=== PATIENT | female | born 1930 | race Caucasian/White ===

== ENCOUNTER 2017-04-19 13:42 | Emergency (ER) | payer MEDICARE ==
[~2017-04-19] VITALS: Ht 157.5 cm; Wt 56.2 kg
[~2017-04-19 13:42] MED LIST: AMLO2.5T PO; ASCO500T45 PO; BEN12.5L PO; CALC-575 PO; CHOL100044; DYR50 PO; FEXO180T PO; GLUC1CAP57 PO; IBUP200S18 PO; LEVO500T6 PO; OMEP40EC1 PO; POTA10TE30 PO; POTA99CA2 PO; SIMV80TA1 PO; [UNRECOGNIZED DRUG - CODE] PO; [UNRECOGNIZED DRUG - CODE] PO
[2017-04-19 13:53] VITALS: BP 105/43
--- NOTE | 2017-04-19 13:59 | NUR ---
PT AMBULATED TO BED 12
[2017-04-19] MEDS ORDERED: NACL 0.9% 1,000 ML IV SCH (14:04)
[2017-04-19] MEDS ORDERED: ONDANSETRON 4 MG/2 ML VIAL IVP ONE (14:05)
--- NOTE | 2017-04-19 14:15 | NUR ---
86f bib daughter with c/o vomitting x 3 days; Pt sts approx vomitting 5 episodes per day. Pt states she was diagnosed with influeza this past weekend. Pt denies any pain at this time. Pt is aox4 with steady gait. RR are even and unlabored. Skin warm/pink/dry. No acute distress at this. VSS. Awaiting er md cruz. Will continue to monitor.
[2017-04-19 14:22] LABS: BASOPHILS # (AUTO) 0.2 K/uL (0.00-0.22); BASOPHILS % (AUTO) 2.5 % (0.0-2.0); EOSINOPHILS % (AUTO) 0.3 % (0.0-4.0); HEMATOCRIT 33.3 % (36-48); HEMOGLOBIN 10.9 g/dL (12.0-16.0); LYMPHOCYTES # (AUTO) 1.6 K/uL (2.5-16.5); LYMPHOCYTES % (AUTO) 20.2 % (20.5-51.1); MEAN CORPUSCULAR HEMOGLOBIN 27 pg (27-31); MEAN CORPUSCULAR HGB CONC 33 g/dL (33-37); MEAN CORPUSCULAR VOLUME 83 fL (80-94); MONOCYTES # (AUTO) 0.8 K/uL (0.8-1.0); MONOCYTES % (AUTO) 9.4 % (1.7-9.3); NEUTROPHILS # (AUTO) 5.5 K/uL (1.8-7.7); NEUTROPHILS % (AUTO) 67.6 % (42.2-75.2); PLATELET COUNT (AUTO) 169 K/uL (140-450); RED BLOOD CELL COUNT(AUTO) 4.04 MIL/uL (4.20-5.40); RED CELL DISTRIBUTION WIDTH 14.9 % (11.6-13.7); WHITE BLOOD COUNT (AUTO) 8.1 K/uL (4.8-10.8)
[2017-04-19 14:26] LABS: APPEARANCE,URINE HAZY (CLEAR); BILIRUBIN,URINE NEGATIVE (NEGATIVE); BLOOD, URINE TRACE-I (NEGATIVE); COLOR,URINE YELLOW (YELLOW); LEUKOCYTE ESTERASE ,URINE 3+ (NEGATIVE); NITRITE, URINE NEGATIVE (NEGATIVE); UGLUCOSE NEGATIVE (NEGATIVE)
[2017-04-19 14:30] LABS: ANION GAP 17.3 (8-16); CARBON DIOXIDE 24.1 mmol/L (21-32); CHLORIDE 101 mmol/L (98-107); CREATININE 1.8 mg/dL (0.6-1.3); GLUCOSE 112 mg/dL (74-106); POTASSIUM 3.4 mmol/L (3.5-5.1); SODIUM SERUM 139 mmol/L (136-145); UREA NITROGEN, BLOOD 23 mg/dL (7-18)
[2017-04-19 14:35] LABS: ALBUMIN 3.4 g/dL (3.4-5.0); ASPARTATE AMINOTRANSFERASE 34 U/L (15-37); LIPASE 213 U/L (73-393); TOTAL BILIRUBIN 0.4 mg/dL (0.0-1.0)
[2017-04-19 14:50] LABS: RBC,URINE 11-20 (MOD) /HPF (0-5); WBC,URINE TOO MANY TO COUNT /HPF (0-5)
[2017-04-19] MEDS ORDERED: POTASSIUM CHLORIDE 10 MEQ TABER PO ONE (15:15)
[2017-04-19 16:17] VITALS: BP 143/63
--- NOTE | 2017-04-19 16:17 | NUR ---
Patient discharged with v/s stable. Written and verbal after care instructions given and explained. Patient alert, oriented and verbalized understanding of instructions. Ambulatory with steady gait. All questions addressed prior to discharge. ID band removed. Patient advised to follow up with PMD. Rx of Prednisone, Cipro, and Zofran given. Patient educated on indication of medication including possible reaction and side effects. Opportunity to ask questions provided and answered.
== END 2017-04-19 16:17 | disposition home or self-care (01) ==
LOC: MED 13:42
DX: N39.0 Urinary tract infection, site not specified (principal); R11.2 Nausea with vomiting, unspecified; R05 Cough; E87.6 Hypokalemia; K21.9 Gastro-esophageal reflux disease without esophagitis; I10 Essential (primary) hypertension; Z79.899 Other long term (current) drug therapy; Z88.5 Allergy status to narcotic agent; Z88.8 Allergy status to other drugs, medicaments and biological substances; Z90.49 Acquired absence of other specified parts of digestive tract
CPT/HCPCS: 36415; 80053; 81001; 83690; 85025; 87086; 87186; 96361; 96374; 99284; J2405

== ENCOUNTER 2017-08-23 15:47 | Emergency (ER) | payer MEDICARE, OTHER ==
[~2017-08-23] VITALS: Ht 160 cm; Wt 52.6 kg
[2017-08-23 16:06] VITALS: BP 162/73
--- NOTE | 2017-08-23 16:30 | NUR ---
86 YO F BIB FAMILY WITH C/O HEAD ACHE WITH BLEEDING AT THE OCCIPITAL AREA, LT HIP PAIN S/P FALL ON A TILE FLOOR 30 MINUTES PRIOR TO ARIVAL, DIZZINESS X 1 WK; PRESCRIBED MECLIZINE, ZOFRAN LAST WK AT [place], BUT PT STILL REPORTS EPISODES OF DIZZINESS. PT DENIES LOC. NO APPARENT SIGNS OF TRAUMA. NO NOTED DEFORMITY. BUMP PALPABLE TO THE OCCIPITAL PORTION OF HEAD. PT AAOX4. GCS 15. CMS INTACT. RR EVEN AND UNLABORED. LUNGS BILATERALLY CLEAR. ABD SOFT, NON-TENDER. ER MD QUICK NOTIFIED. PT NEEDS MET. SAFETY PRECAUTIONS IN PLACE. WILL CONTINUE TO MONITOR.
--- NOTE | 2017-08-23 16:50 | NUR ---
PT TO CT SCAN AT THIS TIME VIA [facility].
--- NOTE | 2017-08-23 17:07 | NUR ---
PT BACK FROM CT
--- NOTE | 2017-08-23 18:00 | NUR ---
pt resting comfortably in [facility] at this time. vss. safety precautions in place. will continue to monitor.
--- NOTE | 2017-08-23 19:12 | NUR ---
Transfer of care at this time. Report given to PAUL Lopes.
--- NOTE | 2017-08-23 19:58 | NUR ---
Patient to be transferred to [facility]. Is being transferred due to CONTINUITY OF CARE. Receiving facility has accepting physician and available space. ER physician has signed transfer form. Patient or responsible republican has agreed to transfer and signed form. Patient belongings inventoried and will be sent with patient. Copy of nursing notes, lab reports, EKG, Physicians Orders and X-rays to be sent with patient. Report called to WEN MILLER at receiving facility. [facility] ambulance service has been called for transfer. ETA is 2044.
--- NOTE | 2017-08-23 20:10 | NUR ---
MERI EPRP, [facility] TRANSPORT ETA 2044
[2017-08-23 21:02] LABS: BASOPHILS % (AUTO) 0.3 % (0.0-2.0); EOSINOPHILS # (AUTO) 0.2 K/uL (0-0.4); HEMATOCRIT 35.4 % (36-48); HEMOGLOBIN 11.4 g/dL (12.0-16.0); LYMPHOCYTES # (AUTO) 2.2 K/uL (2.5-16.5); LYMPHOCYTES % (AUTO) 21.5 % (20.5-51.1); MEAN CORPUSCULAR HEMOGLOBIN 27 pg (27-31); MEAN CORPUSCULAR HGB CONC 32 g/dL (33-37); MEAN CORPUSCULAR VOLUME 82.6 fL (80-94); MONOCYTES # (AUTO) 0.8 K/uL (0.8-1.0); MONOCYTES % (AUTO) 7.4 % (1.7-9.3); NEUTROPHILS # (AUTO) 7.1 K/uL (1.8-7.7); NEUTROPHILS % (AUTO) 68.8 % (42.2-75.2); PLATELET COUNT (AUTO) 160 K/uL (140-450); RED BLOOD CELL COUNT(AUTO) 4.28 MIL/uL (4.20-5.40); RED CELL DISTRIBUTION WIDTH 16.3 % (11.6-13.7); WHITE BLOOD COUNT (AUTO) 10.4 K/uL (4.8-10.8)
--- NOTE | 2017-08-23 21:10 | NUR ---
Patient Tranfers to outside Facility Physician: DR SOLER Location: [facility] TRANSFERRED BY [facility]
[2017-08-23 21:13] VITALS: BP 148/62
[2017-08-23 21:29] LABS: ANION GAP 14.7 (8-16); CARBON DIOXIDE 28.8 mmol/L (21-32); CHLORIDE 101 mmol/L (98-107); CREATININE 1.5 mg/dL (0.6-1.3); GLUCOSE 108 mg/dL (74-106); POTASSIUM 3.5 mmol/L (3.5-5.1); SODIUM SERUM 141 mmol/L (136-145); UREA NITROGEN, BLOOD 27 mg/dL (7-18)
[2017-08-23 21:32] LABS: PROTHROMBIN TIME 11.1 secs (10.8-13.4)
[2017-08-23 21:35] LABS: ALBUMIN 3.6 g/dL (3.4-5.0); ASPARTATE AMINOTRANSFERASE 18 U/L (15-37); TOTAL BILIRUBIN 0.6 mg/dL (0.0-1.0)
== END 2017-08-23 21:08 | disposition short-term general hospital (02) ==
LOC: MED 15:47
DX: S01.01XA Laceration without foreign body of scalp, initial encounter (principal); S06.6X0A Traumatic subarachnoid hemorrhage without loss of consciousness, initial encounter; M25.552 Pain in left hip; I10 Essential (primary) hypertension; K21.9 Gastro-esophageal reflux disease without esophagitis; Z85.828 Personal history of other malignant neoplasm of skin; Z88.8 Allergy status to other drugs, medicaments and biological substances; W18.39XA Other fall on same level, initial encounter; Y93.89 Activity, other specified; Y99.8 Other external cause status; Y92.89 Other specified places as the place of occurrence of the external cause
CPT/HCPCS: 12001; 36415; 70450; 71045; 72192; 80053; 84484; 85025; 85610; 85730; 93005; 99285

== ENCOUNTER 2017-09-26 18:36 | Emergency (ER) | payer MEDICARE, OTHER ==
[~2017-09-26] VITALS: Ht 165.1 cm; Wt 56.7 kg
[~2017-09-26 18:36] MED LIST changes: +IBUP200C97 PO; -IBUP200S18 PO
[2017-09-26 18:40] VITALS: BP 174/123
[2017-09-26] MEDS ORDERED: LORazepam 2 MG/ML VIAL ONE (19:12)
[2017-09-26] MEDS ORDERED: LORazepam 2 MG/ML VIAL IVP ONE (19:15)
[2017-09-26] MEDS ORDERED: NACL 0.9% 1,000 ML IV SCH (19:49)
[2017-09-26] MEDS ORDERED: ONDANSETRON 4 MG/2 ML VIAL IVP ONE (19:50)
[2017-09-26] MEDS ORDERED: cefTRIAXone 1,000 MG in DEXT 5% MINI-BAG PLUS 50 ML IV ONE (19:50)
[2017-09-26] MEDS ORDERED: MORPHINE SULFATE 4 MG/ML SYR IVP ONE (19:50)
[2017-09-26] MEDS ORDERED: cefTRIAXone 1,000 MG VIAL ONE (20:19)
[2017-09-26 20:22] LABS: BASOPHILS # (AUTO) 0.1 K/uL (0.00-0.22); BASOPHILS % (AUTO) 0.7 % (0.0-2.0); EOSINOPHILS # (AUTO) 0.3 K/uL (0-0.4); EOSINOPHILS % (AUTO) 3.7 % (0.0-4.0); HEMATOCRIT 37.7 % (36-48); HEMOGLOBIN 12.4 g/dL (12.0-16.0); LYMPHOCYTES % (AUTO) 23.3 % (20.5-51.1); MEAN CORPUSCULAR HEMOGLOBIN 27 pg (27-31); MEAN CORPUSCULAR HGB CONC 33 g/dL (33-37); MEAN CORPUSCULAR VOLUME 83.2 fL (80-94); MONOCYTES # (AUTO) 0.7 K/uL (0.8-1.0); MONOCYTES % (AUTO) 7.8 % (1.7-9.3); NEUTROPHILS # (AUTO) 5.6 K/uL (1.8-7.7); NEUTROPHILS % (AUTO) 64.5 % (42.2-75.2); PLATELET COUNT (AUTO) 216 K/uL (140-450); RED BLOOD CELL COUNT(AUTO) 4.53 MIL/uL (4.20-5.40); RED CELL DISTRIBUTION WIDTH 17.6 % (11.6-13.7); WHITE BLOOD COUNT (AUTO) 8.7 K/uL (4.8-10.8)
[2017-09-26 20:27] LABS: APPEARANCE,URINE CLEAR (CLEAR); BILIRUBIN,URINE NEGATIVE (NEGATIVE); BLOOD, URINE NEGATIVE (NEGATIVE); LEUKOCYTE ESTERASE ,URINE TRACE (NEGATIVE); NITRITE, URINE NEGATIVE (NEGATIVE); UGLUCOSE NEGATIVE (NEGATIVE)
[2017-09-26 20:42] LABS: PROTHROMBIN TIME 11.7 secs (10.8-13.4)
[2017-09-26] MEDS ORDERED: ENALAPRILAT 2.5 MG/2 ML VIAL IVP ONE (21:15)
[2017-09-26 21:17] LABS: COLOR,URINE STRAW (YELLOW)
[2017-09-26 21:18] LABS: ALBUMIN 4.3 g/dL (3.4-5.0); ASPARTATE AMINOTRANSFERASE 22 U/L (15-37); CARBON DIOXIDE 20.2 mmol/L (21-32); CHLORIDE 104 mmol/L (98-107); GLUCOSE 106 mg/dL (74-106); POTASSIUM 3.2 mmol/L (3.5-5.1); SODIUM SERUM 142 mmol/L (136-145); TOTAL BILIRUBIN 0.6 mg/dL (0.0-1.0); UREA NITROGEN, BLOOD 27 mg/dL (7-18)
[2017-09-26 21:19] LABS: RBC,URINE NONE SEEN /HPF (0-5); WBC,URINE 0-5 (RARE) /HPF (0-5)
[2017-09-26 21:29] LABS: CREATININE 1.3 mg/dL (0.6-1.3)
[2017-09-26 23:48] VITALS: BP 154/79
== END 2017-09-27 00:13 | disposition short-term general hospital (02) ==
LOC: MED 18:36
DX: N39.0 Urinary tract infection, site not specified (principal); R40.4 Transient alteration of awareness; K21.9 Gastro-esophageal reflux disease without esophagitis; I10 Essential (primary) hypertension; M19.90 Unspecified osteoarthritis, unspecified site; Z90.710 Acquired absence of both cervix and uterus; Z79.899 Other long term (current) drug therapy; Z88.6 Allergy status to analgesic agent; Z88.8 Allergy status to other drugs, medicaments and biological substances
CPT/HCPCS: 36415; 70450; 71045; 80053; 81001; 82550; 82948; 83605; 83880; 84484; 85025; 85610; 85730; 86886; 86900; 86901; 87040; 87086; 93005; 96365; 96375; 99285; J0696; J2060; J2270; J2405; J3490

== ENCOUNTER 2018-12-19 10:25 | Emergency (ER) | payer MEDICARE, OTHER ==
[~2018-12-19] VITALS: Ht 157.5 cm; Wt 50.8 kg
[~2018-12-19 10:25] MED LIST changes: -OMEP40EC1 PO; +OMEP40EC24 PO
[2018-12-19 10:28] VITALS: BP 154/87
--- NOTE | 2018-12-19 10:30 | NUR ---
PT BIB PARENT WITH TIREDNESS, CHILLS, COUGH SINCE SUNDAY. HAS COLD LIKE SYMPTOMS. PER FAMILY, PT BEING TREATED FOR WATER IN LUNGS AT [place]. PT VOMITING, ONCE TODAY. lung sounds crackles lower lobe bilaterally. o2 2l nc. productive dry cough. vss. a & o x4. HX--HTN, HDL. MEDS---SEE RX LIST
--- NOTE | 2018-12-19 10:39 | NUR ---
PT SENT TO LOBBY , WAITING FOR THE BED. STABLE AT THIS TIME.
--- NOTE | 2018-12-19 11:05 | NUR ---
PT TAKEN TO BED 5 VIA WHEELCHAIR
[2018-12-19] MEDS ORDERED: ONDANSETRON 4 MG/2 ML VIAL IVP ONE (11:25)
--- NOTE | 2018-12-19 11:30 | NUR ---
radiology at bedside.
[2018-12-19] MEDS ORDERED: LIP80 PO (11:45)
[2018-12-19] MEDS ORDERED: DULO60EC PO (11:45)
[2018-12-19] MEDS ORDERED: FURO-572 PO (11:45)
[2018-12-19] MEDS ORDERED: METO25TA PO (11:45)
[2018-12-19 12:24] LABS: BASOPHILS % (AUTO) 0.2 % (0.0-2.0); EOSINOPHILS % (AUTO) 0.2 % (0.0-4.0); HEMATOCRIT 36.7 % (36-48); HEMOGLOBIN 11.9 g/dL (12.0-16.0); LYMPHOCYTES # (AUTO) 0.7 K/uL (2.5-16.5); MEAN CORPUSCULAR HEMOGLOBIN 28 pg (27-31); MEAN CORPUSCULAR HGB CONC 32 g/dL (33-37); MEAN CORPUSCULAR VOLUME 85.3 fL (80-94); MONOCYTES # (AUTO) 0.6 K/uL (0.8-1.0); MONOCYTES % (AUTO) 5.2 % (1.7-9.3); NEUTROPHILS # (AUTO) 9.9 K/uL (1.8-7.7); NEUTROPHILS % (AUTO) 88.4 % (42.2-75.2); PLATELET COUNT (AUTO) 178 K/uL (140-450); WHITE BLOOD COUNT (AUTO) 11.2 K/uL (4.8-10.8)
[2018-12-19 12:33] LABS: ANION GAP 14.3 (8-16); CARBON DIOXIDE 24.9 mmol/L (21-32); CHLORIDE 102 mmol/L (98-107); CREATININE 1.3 mg/dL (0.6-1.3); GLUCOSE 120 mg/dL (74-106); POTASSIUM 4.2 mmol/L (3.5-5.1); SODIUM SERUM 137 mmol/L (136-145); UREA NITROGEN, BLOOD 28 mg/dL (7-18)
[2018-12-19 12:38] LABS: ALBUMIN 3.6 g/dL (3.4-5.0); ASPARTATE AMINOTRANSFERASE 156 U/L (15-37); TOTAL BILIRUBIN 0.9 mg/dL (0.0-1.0)
[2018-12-19 13:18] LABS: APPEARANCE,URINE HAZY (CLEAR); BILIRUBIN,URINE NEGATIVE (NEGATIVE); BLOOD, URINE TRACE-L (NEGATIVE); COLOR,URINE YELLOW (YELLOW); LEUKOCYTE ESTERASE ,URINE 3+ (NEGATIVE); NITRITE, URINE POSITIVE (NEGATIVE); UGLUCOSE NEGATIVE (NEGATIVE)
[2018-12-19] MEDS ORDERED: NITROGLYCERIN 2% 1 GM PKT TP ONE (13:20)
[2018-12-19] MEDS ORDERED: FUROSEMIDE 40 MG/4 ML VIAL IVP SCH (13:20)
[2018-12-19 13:35] LABS: RBC,URINE 0-5 /HPF (0-5); WBC,URINE 60-80 /HPF (0-5)
[2018-12-19] MEDS ORDERED: cefTRIAXone 1,000 MG VIAL ONE (14:08)
--- NOTE | 2018-12-19 14:30 | NUR ---
cardiac diet order placed, cafeteria made aware
--- NOTE | 2018-12-19 15:59 | NUR ---
PT RESTING IN BED, DAUGHTER AT BEDSIDE, PT IS AWARE WE ARE WAITING ON [facility] TRANSFER
--- NOTE | 2018-12-19 16:26 | NUR ---
NITROGLYCERINE REMOVED DUE TO BP 96/59
--- NOTE | 2018-12-19 16:37 | NUR ---
REPORT GIVEN TO PAUL BOUCHER FROM [facility].
--- NOTE | 2018-12-19 17:32 | NUR ---
PT ASLEEP IN BED, NO NEW NEEDS AT THIS TIME
--- NOTE | 2018-12-19 18:15 | NUR ---
Patient to be transferred to [facility]. Is being transferred due to INSURANCE. Receiving facility has accepting physician and available space. ER physician has signed transfer form. Patient or responsible alliance party has agreed to transfer and signed form. Patient belongings inventoried and will be sent with patient. Copy of nursing notes, lab reports, EKG, Physicians Orders and X-rays to be sent with patient. Report called to NANCY PADILLA RN at receiving facility. [facility] ambulance service has ARRIVED for transfer.
[2018-12-19 18:19] VITALS: BP 108/62
--- NOTE | 2018-12-19 18:28 | NUR ---
CALL REPORT TO NANCY PADILLA RN FOR TRANSFER OF CARE TO [facility].
== END 2018-12-19 18:28 | disposition short-term general hospital (02) ==
LOC: MED 10:25
DX: I11.0 Hypertensive heart disease with heart failure (principal); I50.9 Heart failure, unspecified; N39.0 Urinary tract infection, site not specified; D64.9 Anemia, unspecified; R74.0 Nonspecific elevation of levels of transaminase and lactic acid dehydrogenase [LDH]; E78.5 Hyperlipidemia, unspecified; R00.0 Tachycardia, unspecified; K21.9 Gastro-esophageal reflux disease without esophagitis; Z87.448 Personal history of other diseases of urinary system; Z79.899 Other long term (current) drug therapy; Z88.6 Allergy status to analgesic agent; Z88.8 Allergy status to other drugs, medicaments and biological substances
CPT/HCPCS: 36415; 36600; 71045; 80053; 81001; 82803; 83605; 83880; 84484; 85025; 87040; 87086; 87186; 93005; 96365; 96375; 99285; J0696; J1940; J2405; Q0092

== ENCOUNTER 2020-03-27 13:43 | Emergency (ER) | payer MEDICARE, OTHER ==
[~2020-03-27] VITALS: Ht 160 cm; Wt 53.5 kg
[~2020-03-27 13:43] MED LIST changes: -AMLO2.5T PO; -ASCO500T45 PO; +ASCO500T95 PO; -BEN12.5L PO; +DULO60EC PO; -DYR50 PO; -FEXO180T PO; +FURO-572 PO; -IBUP200C97 PO; -LEVO500T6 PO; +LIP80 PO; +METO25TA PO; -SIMV80TA1 PO
[2020-03-27 13:45] VITALS: BP 118/87
--- NOTE | 2020-03-27 14:00 | NUR ---
EPIFANIO CLAY: CONTACT FOR UPDATES [phone]
[2020-03-27] MEDS ORDERED: AMLO10TA PO (14:14)
[2020-03-27] MEDS ORDERED: [UNRECOGNIZED DRUG - CODE] PO (14:14)
[2020-03-27] MEDS ORDERED: TRAZ-343 PO (14:14)
[2020-03-27] MEDS ORDERED: TRA200 PO (14:14)
[2020-03-27] MEDS ORDERED: OSC500 PO (14:14)
[2020-03-27] MEDS ORDERED: MULT1TAB99 PO (14:14)
[2020-03-27] MEDS ORDERED: METO25TA PO (14:14)
[2020-03-27] MEDS ORDERED: SPIR50TA PO (14:14)
[2020-03-27] MEDS ORDERED: BISO5TAB23 PO (14:14)
[2020-03-27] MEDS ORDERED: [UNRECOGNIZED DRUG - CODE] PO (14:14)
[2020-03-27] MEDS ORDERED: PANT40EC PO (14:14)
[2020-03-27] MEDS ORDERED: [UNRECOGNIZED DRUG - CODE] PO (14:14)
[2020-03-27] MEDS ORDERED: GABA100C PO (14:14)
[2020-03-27] MEDS ORDERED: FERR-212 PO (14:14)
--- NOTE | 2020-03-27 14:23 | NUR ---
89 Y/O FEMALE C/O CHEST PAIN 5/10 THAT RADIATES FROM CHEST TO BACK AND ABD PAIN. DENIES ANY CONTACT WITH ANYONE WHO TESTED FOR POSTIVE. PT RECEIVED THE VACCINE 2 WEEKS AGO. ALSO C/O N&V AND HEADACHE THAT STARTED 03/25/20. AMBULATES WITH WALKER. DOES NOT RECALL ANY MEDICATIONS SHE TAKES AT HOME. A&O X4. LUNGS BILATERALLY RHONCHI WITH A NON PRODUCTIVE COUGH.
[2020-03-27] MEDS: ONDANSETRON 4 MG/2 ML VIAL IVP ONE (14:54)
[2020-03-27] MEDS: NACL 0.9% 1,000 ML IV SCH (14:54)
[2020-03-27 14:55] LABS: BASOPHILS % (AUTO) 0.4 % (0.0-2.0); EOSINOPHILS % (AUTO) 0.2 % (0.0-4.0); HEMATOCRIT 35.1 % (36-48); HEMOGLOBIN 11.9 g/dL (12.0-16.0); LYMPHOCYTES # (AUTO) 0.6 K/uL (2.5-16.5); LYMPHOCYTES % (AUTO) 5.1 % (20.5-51.1); MEAN CORPUSCULAR HEMOGLOBIN 30 pg (27-31); MEAN CORPUSCULAR HGB CONC 34 g/dL (33-37); MEAN CORPUSCULAR VOLUME 87.7 fL (80-94); MONOCYTES # (AUTO) 0.6 K/uL (0.8-1.0); MONOCYTES % (AUTO) 4.9 % (1.7-9.3); NEUTROPHILS # (AUTO) 10.9 K/uL (1.8-7.7); NEUTROPHILS % (AUTO) 89.4 % (42.2-75.2); PLATELET COUNT (AUTO) 155 K/uL (140-450); WHITE BLOOD COUNT (AUTO) 12.2 K/uL (4.8-10.8)
--- NOTE | 2020-03-27 15:08 | NUR ---
nanotechnology engineering technician at bedside.
[2020-03-27 15:21] LABS: ALBUMIN 3.6 g/dL (3.4-5.0); ANION GAP 13.1 (8-16); ASPARTATE AMINOTRANSFERASE 167 U/L (15-37); CARBON DIOXIDE 25.9 mmol/L (21-32); CHLORIDE 99 mmol/L (98-107); CREATININE 1.7 mg/dL (0.6-1.3); GLUCOSE 116 mg/dL (74-106); LIPASE 99 U/L (73-393); SODIUM SERUM 134 mmol/L (136-145); TOTAL BILIRUBIN 2.9 mg/dL (0.0-1.0); UREA NITROGEN, BLOOD 39 mg/dL (7-18)
[2020-03-27 17:56] LABS: APPEARANCE,URINE HAZY (CLEAR); BILIRUBIN,URINE NEGATIVE (NEGATIVE); BLOOD, URINE TRACE-I (NEGATIVE); COLOR,URINE DARK YELLOW (YELLOW); LEUKOCYTE ESTERASE ,URINE 2+ (NEGATIVE); NITRITE, URINE NEGATIVE (NEGATIVE); PH,URINE 7.5 (5.0-9.0); UGLUCOSE NEGATIVE (NEGATIVE)
[2020-03-27] MEDS ORDERED: cefTRIAXone 1,000 MG VIAL ONE (17:58)
[2020-03-27 18:08] LABS: WBC,URINE 20-60 /HPF (0-5)
[2020-03-27] MEDS ORDERED: NACL 0.9% 1,000 ML IV SCH (18:10)
[2020-03-27] MEDS ORDERED: MORPHINE SULFATE 4 MG/ML SYR ONE (18:29)
[2020-03-27] MEDS: MORPHINE SULFATE 4 MG/ML SYR IVP ONE (18:35)
[2020-03-27] MEDS: metroNIDAZOLE 500 MG/NS PREMIX 100 ML IV ONE (18:57)
--- NOTE | 2020-03-27 19:10 | NUR ---
REPORT RECEIVED FROM PAUL MORENO. CARE ASSUMED.
--- NOTE | 2020-03-27 19:15 | NUR ---
RESTING IN BED WITH EYES OPEN. RESPIRATIONS REGULAR AND UNLABORED. SPEAKING WITH SON ON THE PHONE. DENIES PAIN AT THIS TIME. IVAB CONTINUES. ASSISTED WITH REPOSITIONING FOR COMFORT.
--- NOTE | 2020-03-27 20:07 | NUR ---
PT TO BE TRANSFERED TO [facility]. DR. BECKETT IS ACCEPTING. PT IS AWARE.
--- NOTE | 2020-03-27 20:10 | NUR ---
REPORT CALLED TO PAUL SY @ [facility]. [facility] HERE FOR TRANSPORT.
[2020-03-27 20:15] VITALS: BP 124/68
--- NOTE | 2020-03-29 19:39 | NUR ---
LATE ENTRY- FLAGYL IVPB DISCONTINUED AT 1954
== END 2020-03-27 20:25 | disposition designated cancer center or children's hospital (05) ==
LOC: MED 13:43
DX: K80.20 Calculus of gallbladder without cholecystitis without obstruction (principal); K81.9 Cholecystitis, unspecified; N39.0 Urinary tract infection, site not specified; J44.9 Chronic obstructive pulmonary disease, unspecified; K21.9 Gastro-esophageal reflux disease without esophagitis; Z87.448 Personal history of other diseases of urinary system; Z85.828 Personal history of other malignant neoplasm of skin; Z98.890 Other specified postprocedural states; Z79.899 Other long term (current) drug therapy; Z20.828 Contact with and (suspected) exposure to other viral communicable diseases
CPT/HCPCS: 36415; 71045; 76705; 80053; 81001; 83690; 84484; 85025; 87086; 87426; 93005; 96361; 96365; 96367; 96375; 99285; J0696; J2270; J2405; J3490; J7060; J7030

== ENCOUNTER 2021-08-21 13:42 | Inpatient (IN) | payer MEDICARE, OTHER ==
[~2021-08-21] VITALS: Ht 157.5 cm; Wt 54.0 kg
[~2021-08-21 13:42] MED LIST changes: +AMLO10TA PO; +BISO5TAB23 PO; -CALC-575 PO; -CHOL100044; -DULO60EC PO; +DULO60EC1 PO; +FERR-212 PO; +GABA100C PO; -GLUC1CAP57 PO; +MULT1TAB99 PO; -OMEP40EC24 PO; +OSC500 PO; +PANT40EC PO; -POTA10TE30 PO; -POTA99CA2 PO; +SPIR50TA PO; +TRA200 PO; +TRAZ-343 PO; +[UNRECOGNIZED DRUG - CODE] PO; +[UNRECOGNIZED DRUG - CODE] PO; +[UNRECOGNIZED DRUG - CODE] PO; -[UNRECOGNIZED DRUG - CODE] PO
[2021-08-21 13:53] VITALS: BP 194/88
--- NOTE | 2021-08-21 13:59 | NUR ---
PT W/C ASSISTED TO BED 11.
[2021-08-21] MEDS ORDERED: cefTRIAXone 1,000 MG in DEXT 5% MINI-BAG PLUS 50 ML IV ONE (14:00)
[2021-08-21] MEDS ORDERED: NACL 0.9% 1,000 ML IV SCH (14:00)
--- NOTE | 2021-08-21 14:00 | NUR ---
89 y/o female, c/o sob, weakness, dizzy, n/v, cough, that worsened today. pt states she took covid test 2 days ago and tested positive for covid. pt is also c/o nausea, vomiting. skin is pink/warm/dry. a&o x4, sami speaking, ambulates with heavy assist. lungs wheezing bl, heart rate even and regular. pt states pain is 9/10 at this time. patient positioned for comfort. hob elevated. bed down. ermd made aware of pt. pmh: htn, hld allergy: nsaids
--- NOTE | 2021-08-21 14:10 | NUR ---
labs drawn from iv site 22g hand. dawn and influenza collected and given to phleb.
[2021-08-21] MEDS ORDERED: cefTRIAXone 1,000 MG VIAL ONE (14:24)
[2021-08-21 14:26] LABS: BASOPHILS # (AUTO) 0.1 K/uL (0.00-0.22); BASOPHILS % (AUTO) 0.5 % (0.0-2.0); EOSINOPHILS # (AUTO) 0.2 K/uL (0-0.4); EOSINOPHILS % (AUTO) 1.8 % (0.0-4.0); HEMATOCRIT 37.2 % (36-48); HEMOGLOBIN 12.3 g/dL (12.0-16.0); LYMPHOCYTES # (AUTO) 3.2 K/uL (2.5-16.5); LYMPHOCYTES % (AUTO) 27.4 % (20.5-51.1); MEAN CORPUSCULAR HEMOGLOBIN 28 pg (27-31); MEAN CORPUSCULAR HGB CONC 33 g/dL (33-37); MEAN CORPUSCULAR VOLUME 85.4 fL (80-94); MONOCYTES # (AUTO) 0.6 K/uL (0.8-1.0); MONOCYTES % (AUTO) 5.5 % (1.7-9.3); NEUTROPHILS # (AUTO) 7.5 K/uL (1.8-7.7); NEUTROPHILS % (AUTO) 64.8 % (42.2-75.2); PLATELET COUNT (AUTO) 293 K/uL (140-450); RED BLOOD CELL COUNT(AUTO) 4.36 MIL/uL (4.20-5.40); WHITE BLOOD COUNT (AUTO) 11.6 K/uL (4.8-10.8)
[2021-08-21 14:49] LABS: ALBUMIN 3.8 g/dL (3.4-5.0); ANION GAP 15.8 (8-16); ASPARTATE AMINOTRANSFERASE 27 U/L (15-37); CARBON DIOXIDE 25.1 mmol/L (21-32); CHLORIDE 103 mmol/L (98-107); CREATININE 1.3 mg/dL (0.6-1.3); GLUCOSE 118 mg/dL (74-106); POTASSIUM 3.9 mmol/L (3.5-5.1); SODIUM SERUM 140 mmol/L (136-145); TOTAL BILIRUBIN 0.3 mg/dL (0.0-1.0); UREA NITROGEN, BLOOD 36 mg/dL (7-18)
--- NOTE | 2021-08-21 14:55 | NUR ---
Patient appears to be resting comfortably in bed. Vital Signs within normal limits. Respirations even and unlabored.
[2021-08-21] MEDS ORDERED: METOPROLOL 5 MG/5 ML VIAL IVP ONE (15:15)
[2021-08-21 15:39] LABS: APPEARANCE,URINE CLEAR (CLEAR); BILIRUBIN,URINE NEGATIVE (NEGATIVE); BLOOD, URINE TRACE-I (NEGATIVE); COLOR,URINE YELLOW (YELLOW); LEUKOCYTE ESTERASE ,URINE NEGATIVE (NEGATIVE); NITRITE, URINE NEGATIVE (NEGATIVE); PH,URINE 6.5 (5.0-9.0); UGLUCOSE NEGATIVE (NEGATIVE)
[2021-08-21 15:50] LABS: RBC,URINE 0-5 /HPF (0-5); WBC,URINE NONE SEEN /HPF (0-5)
--- NOTE | 2021-08-21 15:50 | NUR ---
pt assisted to bathroom at this time
--- NOTE | 2021-08-21 15:59 | NUR ---
called to give update to josué (daughter) [phone], no answer
--- NOTE | 2021-08-21 16:10 | NUR ---
pt daughter josué called for update, update given at this time
[2021-08-21] MEDS ORDERED: hydrALAZINE 20 MG/ML VIAL IVP ONE ×2 (16:15→17:40)
--- NOTE | 2021-08-21 16:40 | NUR ---
pt taken to ct via stacie at this time
--- NOTE | 2021-08-21 18:28 | NUR ---
Patient appears to be resting comfortably in bed. Vital Signs within normal limits. Respirations even and unlabored.
--- NOTE | 2021-08-21 19:01 | NUR ---
pt reports having numbness in right hand. vss at this time. lynnette sloan notified. pt reported to having equal pulses in bl upper and lower extremities. no facial droop and even strength in upper and lower extremities.
[2021-08-21] MEDS ORDERED: ONDANSETRON 4 MG/2 ML VIAL IVP ONE (19:10)
--- NOTE | 2021-08-21 19:51 | NUR ---
PT LAYING IN BED LOCKED IN LOWEST POSITION W X2 SIDERAILS UP FOR PT SAFETY. PT C/O OF OVERALL NOT FEELING WELL, PT REPORTS NAUSEA, AND HEADACHE /. PT BP 170/83 ERMD AWARE PER ERMD PT OK LONG BP IS UNDER 200 SYSTOLIC. PT ALSO C/O R ARM FEELS ASLEEP ERMD AWARE. PT AOX4, GCS, 15, NO FACIAL DROOP, EVEN STRENGTH IN UPPER AND LOWER EXTREMITIES. BREATHING EVEN AND UNLABORED. WILL CONTINUE TO MONITOR. PT DOES NOT KNOW HOME MEDS, PER PT WILL CONTACT SON AND SEE IF SHE CAN OBTAIN HOME MEDS.
[2021-08-21] MEDS ORDERED: MORPHINE SULFATE 4 MG/ML SYR IVP ONE (19:55)
[2021-08-21] MEDS ORDERED: ACETAMINOPHEN 325 MG TAB PO PRN (20:35)
[2021-08-21] MEDS ORDERED: HYDROcodone/APAP 5/325 MG 1 TAB TAB PO PRN (20:35)
[2021-08-21] MEDS ORDERED: MORPHINE SULFATE 2 MG/ML SYR IVP PRN (20:35)
--- NOTE | 2021-08-21 20:36 | NUR ---
Patient will be admitted to care of MD SADLER. Admited to TELE. Will go to room 113. Belongings list completed. Report to PAUL LANDEROS.
[2021-08-21] MEDS ORDERED: hydrALAZINE 20 MG/ML VIAL IVP PRN (20:40)
[2021-08-21] MEDS: FUROSEMIDE 40 MG/4 ML VIAL IVP SCH (22:28)
[2021-08-22] VITALS: BP 165/80
--- NOTE | 2021-08-22 01:11 | NUR ---
PATIENT TO ROOM 113-A PUT TO BED PATIENT ON ROOM AIR SAT 98%. LUNGS DIMINISH HAS PRODUCTIVE COUGH. PATIENT IS COVID + PATIENT HAS HAD ALL HER MEDS FOR VACCINE HER SON IS WHO MAKES DECISION ABOUT PATIENT. MARC WREN. PHONE # [phone]. PATIENT HAS HAD NO EMESIS OR VOMITING SINCE SHE CAME TO FLOOR.PATIENT HAS A LOT OF ALLERGY. NSAIDS,IBUPROFEN,ASA, LISINOPRIL, BENZONATATE. PATIENT SLEEPING NO DISTRESS NOTED.
[2021-08-22] MEDS: ONDANSETRON 4 MG/2 ML VIAL IVP PRN ×2 (03:59→14:04)
[2021-08-22 04:00] VITALS: BP 107/80
[2021-08-22 05:54] LABS: BASOPHILS % (AUTO) 0.3 % (0.0-2.0); EOSINOPHILS # (AUTO) 0.1 K/uL (0-0.4); EOSINOPHILS % (AUTO) 0.9 % (0.0-4.0); HEMATOCRIT 35.7 % (36-48); HEMOGLOBIN 11.8 g/dL (12.0-16.0); LYMPHOCYTES # (AUTO) 1.1 K/uL (2.5-16.5); LYMPHOCYTES % (AUTO) 13.1 % (20.5-51.1); MEAN CORPUSCULAR HEMOGLOBIN 29 pg (27-31); MEAN CORPUSCULAR HGB CONC 33 g/dL (33-37); MEAN CORPUSCULAR VOLUME 86.3 fL (80-94); MONOCYTES # (AUTO) 0.5 K/uL (0.8-1.0); MONOCYTES % (AUTO) 5.5 % (1.7-9.3); NEUTROPHILS # (AUTO) 6.7 K/uL (1.8-7.7); NEUTROPHILS % (AUTO) 80.2 % (42.2-75.2); PLATELET COUNT (AUTO) 250 K/uL (140-450); RED BLOOD CELL COUNT(AUTO) 4.13 MIL/uL (4.20-5.40); RED CELL DISTRIBUTION WIDTH 16.2 % (11.6-13.7); WHITE BLOOD COUNT (AUTO) 8.3 K/uL (4.8-10.8)
[2021-08-22 06:47] LABS: ANION GAP 12.8 (8-16); CARBON DIOXIDE 29.6 mmol/L (21-32); CHLORIDE 104 mmol/L (98-107); CREATININE 1.4 mg/dL (0.6-1.3); GLUCOSE 157 mg/dL (74-106); POTASSIUM 4.4 mmol/L (3.5-5.1); SODIUM SERUM 142 mmol/L (136-145); UREA NITROGEN, BLOOD 37 mg/dL (7-18)
[2021-08-22 06:51] LABS: MAGNESIUM 1.8 mg/dL (1.8-2.4); PHOSPHORUS 5.9 mg/dL (2.5-4.9)
--- NOTE | 2021-08-22 07:50 | NUR ---
RECEIVED REPORT FROM PM NURSE, PATIENT ASLEEP IN BED, NO OUTWARD S/SX OF PAIN OR DISCOMFORT OBSERVED AT THIS TIME, WILL ASSUME ALL CARE OF PATIENT
[2021-08-22 08:00] VITALS: BP 160/79
--- NOTE | 2021-08-22 09:11 | NUR ---
POTENTIAL COVID RELATED SKIN FAILURE DUE TO TISSUE LESS TOLERATE TO PRESSURE, SHEARING AND POSSIBLE ASSOCIATED WITH MICROVASCULAR INJURY AND HYPOXIA -POSITIONING: TURN AND REPOSITION PATIENT Q 2H OR SOONER USE PILLOWS TO KEEP BONY PROMINENCES FROM DIRECT CONTACT WITH SURFACES USE REPOSITIONING WEDGES TO PROVIDE 30-DEGREE ANGLE FOR SIDE LYING POSITIONS OFFLOADING OR FOAM DRESSING TO ALL TUBING TO PREVENT MEDICAL DEVICES RELATED PRESSURE INJURY -RE-EVALUATING AND MANAGING INCONTINENCE MONITOR SKIN CONDITION DURING POSITION CHANGE DO NOT MASSAGE REDNESS, BONY PROMINENCES, DO NOT USE DONUT-TYPE DEVICES FREQUENT ДМИТРИЙ-CARE AND PROVIDE BARRIER CREAMS PRN IF SOILING MOISTURE CONTROL BY OFFER BED TY/URINAL /ABSORBENT PAD TO WICK AND HOLD MOISTURE. KEEP SKIN DRY AND PROTECT FROM FRICTION -MANAGE FRICTION/SHEAR/MOBILITY KEEP HOB AT THE LOWEST LEVEL OF ELEVATION NO MORE THAN 30 DEGREE UNLESS OTHERWISE CONTRAINDICATED USE LIFT SHEET OR TRANSFER DEVICE TO MOVE PATIENT AND PREVENT LATERAL SHEER. PROTECT HEELS, ELBOWS BONY PROMENANCES WITH SKIN BERRIES OR FOAM DRESSING IF EXPOSED TO FRICTION OFFLOAD BILATERAL HEELS BY PLACING PILLOWS UNDER CALVES AT ALL TIMES, UNLESS OTHERWISE CONTRAINDICATED -PRESSURE REDISTRIBUTION SURFACE THERAPY NATHANIEL ISOFLEX MATTRESS -NUTRITION: PLEASE FOLLOW RD RECOMMENDATIONS AND OFFER NUTRITION SUPPLEMENTS IF ORDERED. PLEASE CONTACT WOUND CARE NURSE FOR ANY QUESTION AND CHANGE OF WOUND CONDITION.
[2021-08-22] MEDS: FUROSEMIDE 40 MG/4 ML VIAL IVP SCH (09:23)
[2021-08-22] MEDS ORDERED: ALBUTEROL SULFATE/IPRATROPIU 3 ML SOL IH PRN (10:45)
--- NOTE | 2021-08-22 11:30 | NUR ---
PROVIDED SON WITH UPDATE ON PATIENTS CONDITION, ALL CONCERNS ADDRESSED
--- NOTE | 2021-08-22 11:58 | NUR ---
PATIENT HAS BEEN SCREENED AND CATEGORIZED MODERATE NUTRITION RISK. PATIENT WILL BE SEEN WITHIN 3-5 DAYS OF ADMISSION. IZ[address] MARRERO [address]
[2021-08-22 12:00] VITALS: BP 137/85
--- NOTE | 2021-08-22 12:11 | NUR ---
DC PLANNING: ORDER RECEIVED THAT PATIENT IS STABLE TO TRANSFER IN-NETWORK TO A [facility], ORDER AND CLINICAL PACKET FAXED TO [facility]. CM WILL FOLLOW. Addendum: 08/22/21 at 1542 by Marianna Landers DC PLANNING: NO RESPONSE YET FROM [facility] REGARDING TRANSFER IN-NETWORK. THE PATIENT PRESENTED TO THE ED WITH SOB,N/V. H/O SKIN CANCER, COPD, GERD, HTN, RENAL DISEASE. POSITIVE COVID RAPID, CR 1.3, BNP 1780. CXR SHOWS MIL BIBASAL ATELECTASIS, CT HEAD NEGATIVE. ADMITTED FOR MANAGEMENT OF COVID PNA, STARTED ON DECADRON, DUONEBS, LASIX AND IVF'S. THE PATIENT LIVES IN A HOUSE WITH HER BROTHER AND HAS [employer] CAREGIVERS 3 DAYS/WK FOR 8 HRS. DME OF O2, 4WW AND WC, NEEDS ASSISTANCE WITH ADL'S. NO HOME HEALTH BUT PER P.T. WOULD BENEFIT FROM BEING ON SERVICE. CM WILL FOLLOW. Addendum: 08/24/21 at 1052 by Marianna Landers CM DC PLANNING: SAMUEL SPOKE WITH [facility], REFAXED THE TRANSFER ORDER AND UPDATED CLINICALS. CM ASSIGNED AT [facility] IS [facility]AR[facility], INFORMATION WILL BE FORWARDED FOR HIS REVIEW. SAMUEL ALSO SPOKE WITH THE PATIENTS DAUGHTER DANNA BY PHONE, CONFIRMED THE PATIENTS LIVING SITUATION AND DME. PATIENT WILL NEED HOME HEALTH FOR WIRE DRAWING SETTER AND P.T., CM ENDORSED THAT THIS WILL BE ORDERED IF THE PATIENT DOES NOT TRANSFER. CM WILL UPDATE FAMILY AND PATIENT ON [facility] TRANSFER ONCE A DECISION IS REACHED AND COMMUNICATED. SAMUEL WILL FOLLOW. Addendum: 08/24/21 at 1337 by Marianna Landers CM DC PLANNING: SAMUEL SPOKE WITH [facility] AGAIN, THEY STATE THAT [facility] IS WORKING ON GETTING A BED AT [facility]. SAMUEL WILL FOLLOW. Addendum: 08/24/21 at 1608 by Marianna Landers CM DC PLANNING: CM RECEIVED A CALL FROM [facility], THEY STATE THEY ARE NOW WORKING ON A BED A [facility]. THEY WILL CALL [facility] WHEN THEY HAVE A ROOM AND PRE SCHOOL MANAGER TIME FOR TRANSPORT. CM ENDORSED THIS TO THE PATIENTS NURSE DENAE. SAMUEL ALSO SPOKE WITH THE PATIENTS DAUGHTER DANNA AND UPDATED HER ON [facility] ARRANGEMENTS. CM WILL FOLLOW.
[2021-08-22] MEDS: ALBUTEROL SULFATE/IPRATROPIU 3 ML SOL IH SCH ×2 (13:35→20:23)
--- NOTE | 2021-08-22 14:04 | NUR ---
PATIENT C/O NAUSEA, PRN ZOFRAN ADMINISTERED PER EMAR
[2021-08-22 16:00] VITALS: BP 150/84
[2021-08-22] MEDS: NIFEdipine 60 MG TABER PO SCH (18:10)
[2021-08-22 20:00] VITALS: BP 134/70
--- NOTE | 2021-08-22 20:00 | NUR ---
RECEIVE IN BED IS ALERT ON DROPLET ISOLATION IS ON ROOM AIR NO SOB OR PAIN AT THIS TIME
[2021-08-23] VITALS: BP 92/58
[2021-08-23 04:00] VITALS: BP 113/76
--- NOTE | 2021-08-23 07:30 | NUR ---
RECEIVED REPORT FROM BREAKFAST BAR ATTENDANT NURSE FOR CONTINUITY OF CARE, POC DISCUSSED. PT IS ASLEEP ON HER SIDE WITH CHEST RISING AND FALLING EVEN AND UNLABORED. PT IS ON TELE MONITOR SHOWING SR. ALL SAFETY MEASURES IN PLACE. CALL LIGHT WITHIN REACH. WILL CONTINUE TO MONITOR.
[2021-08-23 08:00] VITALS: BP 97/55
[2021-08-23] MEDS: ZINC SULF 220 MG CAP PO SCH (08:37)
[2021-08-23] MEDS: ASCORBIC ACID 500 MG TAB PO SCH (08:37)
[2021-08-23] MEDS: NIFEdipine 60 MG TABER PO SCH (08:38)
--- NOTE | 2021-08-23 09:30 | NUR ---
LOVE MEDICATION ADMINISTERED PER MD ORDER. BP MEDICATION HELD DUE TO SBP LESS THAN 120 PER PARAMETERS. PT SITTING UP EATING BREAKFAST. REPORTS ALL OTHER NEEDS ARE CURRENTLY BEING MET. ALL SAFETY MEASURES IN PLACE, CALL LIGHT WITHIN REACH. WILL CONTINUE TO MONITOR.
[2021-08-23] MEDS: ALBUTEROL SULFATE/IPRATROPIU 3 ML SOL IH SCH ×3 (10:18→20:01)
--- NOTE | 2021-08-23 10:57 | NUR ---
PHYSICAL THERAPY CO-SIGN The Physical Therapy Progress Notes documented by Machine Rug Cleaner have been reviewed. Reviewed/Co-Signed by: Faye Sharpe Documentation Done by: NIKKY SAWYER PTA Addendum: 08/23/21 at 1058 by Faye Sharpe PT Amended: Links added.
--- NOTE | 2021-08-23 11:41 | NUR ---
SPOKE TO DAUGHTER, DANNA, AND GAVE FULL UPDATE. DAUGHTER STATES SHE HAS NOT HEARD FROM ANY NURSES OR DRS IN REGARDS TO MOTHERS STATUS. ALL QUESTIONS WERE ANSWERED, ALL CONCERNS COVERED. DAUGHTER STATES SHE FEELS BETTER AFTER HEARING UPDATE AND CONCERNS HAVE SAJI DISCUSSED. DAUGHTER STILL WANTS HER PHONE NUMBER TO BE GIVEN TO MD, FOR UPDATE FROM THE DR WELL.
--- NOTE | 2021-08-23 11:51 | NUR ---
DAUGHTER, DANNA CALLED AGAIN. ANSWERED THE NEW QUESTIONS SHE HAD. UPDATED HER ON THE NEW PLAN PER DR BAEZ OF POSSIBLE DC TOMORROW IF SHE REMAINS STABLE.
[2021-08-23 12:00] VITALS: BP 116/76
[2021-08-23] MEDS: ONDANSETRON 4 MG/2 ML VIAL IVP PRN ×2 (12:22→18:19)
--- NOTE | 2021-08-23 12:33 | NUR ---
PRN NAUSEA MEDICATION ADMINISTERED PER MD ORDER, PT STATES SHE IS WORRIED ABOUT HER BLOOD PRESSURE. EDUCATION PROVIDED ABOUT HOW MORNING BP MEDICATION WAS HELD, AND SUPERVISOR DRY PASTE READJUSTED MEDICATION. REASSESSED BP PER PTS REQUEST. 116/76. PT REPORTS SHE UNDERSTANDS AND ALL ANSWERS QUESTIONS.
--- NOTE | 2021-08-23 14:20 | NUR ---
CALLED ENGINEERING FOR ROOM BEING HOT, PT REPORTS HAVING PAIN FROM REFLUX. NOTIFIED MD FOR NEW ORDER
--- NOTE | 2021-08-23 14:26 | NUR ---
ICE PACKS GIVEN TO PT FOR ROOM TEMP
[2021-08-23] MEDS ORDERED: PANTOPRAZOLE 40 MG TABEC PO ONE (14:34)
[2021-08-23] MEDS: PANTOPRAZOLE 40 MG TABEC PO SCH (14:39)
--- NOTE | 2021-08-23 15:00 | NUR ---
DAILY ORDER OF PROTONIX ADMINISTERED PER MD ORDER, PT TOLERATED ADMINISTRATION. PT MOVED TO ROOM 114 DUE TO 113 AIR CONDITIONER NEEDING MAINTENANCE .
[2021-08-23 16:00] VITALS: BP 182/71
--- NOTE | 2021-08-23 16:35 | NUR ---
DAUGHTER DANNA CALLED STATING PT ON PHONE SOUNDS OUT OF BREATH. UPON ASSESSMENT, PT DOES NOT SHOW S/S OF SOB, O2 SAT AT 99%, ICE WATER AND COOL WASH CLOTHE PROVIDED. PT STATES SHE IS TIRED, EXPLAINED PT NEEDS REST TO FEEL BETTER.
--- NOTE | 2021-08-23 17:14 | NUR ---
SPOKE WITH DAUGHTER, GAVE ANOTHER UPDATED. NOTIFIED HER OF PAGE TO DR FROM BOTH RN AND CHARGE NURSE. HAS BEEN GIVEN FAMILY MEMBERS NUMBER AND AWARE OF FAMILY WANTING TO SPEAK WITH HIM.
[2021-08-23] MEDS: hydrALAZINE 20 MG/ML VIAL IVP PRN ×2 (17:17→18:18)
--- NOTE | 2021-08-23 17:30 | NUR ---
PRN HYDRALAZINE ADMINISTERED PER MD ORDER
--- NOTE | 2021-08-23 18:19 | NUR ---
REASSESS BP AFTER HYDRALAZINE; 99/61, HR 101. PRN ZOFRAN ADMINISTERED PER MD ORDER. ALL SAFETY MEASURES IN PLACE, CALL LIGHT WITHIN REACH. WILL CONTINUE TO MONITOR.
--- NOTE | 2021-08-23 18:55 | NUR ---
ALL NEEDS HAVE BEEN MET THROUGHOUT THE SHIFT, ALL SAFETY MEASURES IN PLACE, CALL LIGHT WITHIN REACH. WILL CONTINUE TO MONITOR
[2021-08-23 20:00] VITALS: BP 105/55
--- NOTE | 2021-08-23 20:00 | NUR ---
RECEIVED REPORT FROM MORNING SHIFT NURSE. PT IS SITTING ON BED. RESPIRATION ARE EVEN AND UNLABORED ON ROOM AIR. NO S/S OF DISTRESS NOTED. NO S/S OF PAIN NOTED. PT IS AOX4, ABLE TO VERBALIZE NEEDS AND ABLE TO FOLLOW COMMAND. PT HAS A REGULAR DIET AND HAS SALINE LOCK ON LEFT WRIST G18. ALL SAFETY MEASURES GIVEN. CALL LIGHT WITHIN REACH. BED WHEELS LOCKED. WILL CONTINUE TO MONITOR.
--- NOTE | 2021-08-23 21:01 | NUR ---
SCHEDULED MEDICATION WAS GIVEN PER MD ORDER. PT IS WELL TOLERATING IT. CALL LIGHT WITHIN REACH. ALL SAFETY MEASURES GIVEN. WILL CONTINUE TO MONITOR.
--- NOTE | 2021-08-23 22:38 | NUR ---
PT COMPLAINTS OF A LOT OF HEADACHE, TYLENOL ADMINISTERED ORDERED.
--- NOTE | 2021-08-23 22:38 | NUR ---
PT IS AWAKE AND VERBAL. VITAL SIGNS CHECKED: B/P-159/70, P-114, T-98.3, O2 SAT-97% RA. R-19.
[2021-08-24] VITALS: BP 156/58
[2021-08-24 04:00] VITALS: BP 105/57
--- NOTE | 2021-08-24 04:00 | NUR ---
PT STILL SLEEPING. CHEST RISE AND FALL SYMMETRICALLY NOTED. RESPIRATION WAS EVEN AND UNLABORED SATING AT 100%. CALL LIGHT WITHIN REACH. ALL SAFETY MEASURES IMPLEMENTED. WILL CONTINUE TO MONITOR.
[2021-08-24] MEDS: ALBUTEROL SULFATE/IPRATROPIU 3 ML SOL IH SCH ×2 (07:20→13:54)
--- NOTE | 2021-08-24 07:22 | NUR ---
PT IS STABLE. ENDORSED PT TO MORNING SHIFT NURSE FOR CONTINUITY OF CARE.
--- NOTE | 2021-08-24 07:23 | NUR ---
RECEIVED REPORT FROM CASTING REPAIRER NURSE FOR CONTINUITY OF CARE. PT IN BED SLEEPING AT THIS TIME. RESPIRATIONS ARE EVEN AND UNLABORED ON ROOM AIR. NO SIGNS OF DISTRESS NOTED. PT IS ALERT AND ORIENTED X4, ABLE TO VERBALIZE NEEDS, ABLE TO FOLLOW COMMANDS. PT HAS IV TO L WRIST, 18G, SALINE LOCKED. PT IS ON DROPLET PRECAUTIONS. SKIN IS WARM, DRY, AND INTACT. CALL LIGHT WITHIN REACH. ALL SAFETY MEASURES IN PLACE. WILL CONTINUE TO MONITOR.
[2021-08-24 08:00] VITALS: BP 190/78
--- NOTE | 2021-08-24 08:00 | NUR ---
Patient's Plan of Care was discussed and reviewed with MELECIO Mirza
--- NOTE | 2021-08-24 08:02 | NUR ---
PT DAUGHTER CALLED, ASKING FOR UPDATE. GAVE UPDATE. PT DAUGHTER ASKING WHAT TIME DR COMES TO CHECK ON PTS. INFORMED HER THAT DR COMES TO DO ROUNDS WHEN THEY ARE AVAILABLE, NURSE IS UNSURE TO WHAT TIME EXACTLY DR WILL COME. PT DAUGHTER VERBALIZED UNDERSTANDING. WILL CONTINUE TO MONITOR.
[2021-08-24] MEDS: ASCORBIC ACID 500 MG TAB PO SCH (08:55)
[2021-08-24] MEDS: ZINC SULF 220 MG CAP PO SCH (08:55)
[2021-08-24] MEDS: PANTOPRAZOLE 40 MG TABEC PO SCH (08:55)
--- NOTE | 2021-08-24 08:56 | NUR ---
ADMINISTERED ALL SCHEDULED MEDICATIONS. EDUCATED PT ON MEDS ADMINISTERED. PT VERBALIZED UNDERSTANDING. ALSO REMINDED PT THAT SPUTUM CULTURE IS REQUIRED. PT STATES SHE IS UNABLE TO PRODUCE SPUTUM AT THIS TIME. WILL ATTEMPT AGAIN AT A LATER TIME.
[2021-08-24] MEDS ORDERED: NIFEdipine 30 MG TABER PO SCH (09:00)
[2021-08-24] MEDS ORDERED: PANTOPRAZOLE 40 MG TABEC PO SCH (09:00)
--- NOTE | 2021-08-24 10:17 | NUR ---
PHYSICAL THERAPY CO-SIGN The Physical Therapy Progress Notes documented by Peanut Sheller have been reviewed. Reviewed/Co-Signed by: Faye Sharpe Documentation Done by: NIKKY SAWYER PTA Addendum: 08/24/21 at 1017 by Faye Sharpe PT Amended: Links added.
--- NOTE | 2021-08-24 10:35 | NUR ---
PT DAUGHTER CALLED, ASKING ABOUT PT BLOOD PRESSURE AND WHAT [facility] IS FOLLOWING. INFORMED HER THAT HOSPITAL IS FOLLOWING WHEEL GRINDER AND HOSPITALIST [facility]. DAUGHTER STATES SHE WISHES TO SPEAK WITH DR. INFORMED HER THAT WHEN DR COMES ONTO UNIT I WILL INFORM THE DR. DAUGHTER VERBALIZED UNDERSTANDING.
--- NOTE | 2021-08-24 11:03 | NUR ---
RECEIVED CALL FROM HIGH SCHOOL BAND TEACHER FROM [place]. REQUESTING UPDATE ON PT. UPDATE GIVEN. STATES HE WILL CALL HIGH SCHOOL BAND TEACHER HERE AT [facility] TO FOLLOW UP.
[2021-08-24 12:00] VITALS: BP 132/79
[2021-08-24 12:35] LABS: ANION GAP 13.3 (8-16); CARBON DIOXIDE 29.4 mmol/L (21-32); CHLORIDE 99 mmol/L (98-107); CREATININE 2.2 mg/dL (0.6-1.3); GLUCOSE 98 mg/dL (74-106); POTASSIUM 3.7 mmol/L (3.5-5.1); SODIUM SERUM 138 mmol/L (136-145); UREA NITROGEN, BLOOD 47 mg/dL (7-18)
[2021-08-24] MEDS ORDERED: NACL 0.9% 1,000 ML IV SCH (12:50)
--- NOTE | 2021-08-24 14:14 | NUR ---
PT DAUGHTER CALLED AGAIN, ASKING FOR ANOTHER UPDATE. GAVE UPDATE.
[2021-08-24 16:00] VITALS: BP 114/62
--- NOTE | 2021-08-24 16:20 | NUR ---
RECEIVED CALL FROM ARMATURE WINDER. PER ARMATURE WINDER, [facility] HAS AGREED TO TRANSFER PT TO [facility] IN [place]. THEY WILL CALL AND INFORM STAFF WHEN TRANSPORTATION IS SET.
--- NOTE | 2021-08-24 17:47 | NUR ---
PT IN BED RESTING AT THIS TIME. RESPIRATIONS ARE EVEN AND UNLABORED. NO SIGNS OF DISTRESS NOTED. WILL CONTINUE TO MONITOR.
--- NOTE | 2021-08-24 18:19 | NUR ---
RECEIVED CALL FROM KYLE RN SUPPLEMENTAL, GUILLERMO. PER GUILLERMO, PT HAS BEEN ACCEPTED AT [facility], WILL BE GOING TO ROOM 324. ACCEPTING NURSE WILL BE LUCY. NUMBER TO GIVE REPORT [phone]. GUILLERMO ALSO STATES THAT HE WILL FAX OVER PAPERWORK THAT KYLE WILL NEED FROM [facility].
--- NOTE | 2021-08-24 19:10 | NUR ---
ENDORSED PT TO RACK PRODUCTION WORKER NURSE FOR CONTINUITY OF CARE. PT IS STABLE. ALL DISCHARGE PAPERWORK DONE. REPORT GIVEN TO LUCY AT [facility]. TRANSPORTATION IS SET FOR 1930.
--- NOTE | 2021-08-24 19:11 | NUR ---
RECEIVED REPORT FROM MORNING NURSE, DENAE. PT IS LYING ON THE BED. PT IS AOX3. CALL LIGHT WITHIN REACH WILL CONTINUE TO MONITOR PT.
--- NOTE | 2021-08-24 19:50 | NUR ---
PT IS PICK-UP BY [facility] AT 1950, GOING TO [facility] TO ROOM 324. NURSE LUCY IS AWARE. PT IS STABLE.
[2021-08-24] MEDS ORDERED: METOPROLOL 25 MG TAB PO SCH (21:00)
== END 2021-08-24 19:50 | disposition short-term general hospital (02) | DRG 871 ==
LOC: MED 13:42 → MTU 20:10
PROVIDERS: ADMIT Student in an Organized Health Care Education/Training Program; ATTEND Student in an Organized Health Care Education/Training Program
DX: A41.9 Sepsis, unspecified organism (principal); I50.43 Acute on chronic combined systolic (congestive) and diastolic (congestive) heart failure; U07.1 COVID-19; N17.0 Acute kidney failure with tubular necrosis; J12.82 Pneumonia due to coronavirus disease 2019; J96.00 Acute respiratory failure, unspecified whether with hypoxia or hypercapnia; N39.0 Urinary tract infection, site not specified; J44.0 Chronic obstructive pulmonary disease with (acute) lower respiratory infection; I16.1 Hypertensive emergency; I13.0 Hypertensive heart and chronic kidney disease with heart failure and stage 1 through stage 4 chronic kidney disease, or unspecified chronic kidney disease; I25.10 Atherosclerotic heart disease of native coronary artery without angina pectoris; K21.9 Gastro-esophageal reflux disease without esophagitis; E83.39 Other disorders of phosphorus metabolism; C44.90 Unspecified malignant neoplasm of skin, unspecified; E78.5 Hyperlipidemia, unspecified; N18.9 Chronic kidney disease, unspecified; E86.0 Dehydration; Z88.6 Allergy status to analgesic agent; Z88.1 Allergy status to other antibiotic agents; Z88.5 Allergy status to narcotic agent; Z88.8 Allergy status to other drugs, medicaments and biological substances; Z79.899 Other long term (current) drug therapy; Z90.710 Acquired absence of both cervix and uterus; Z90.49 Acquired absence of other specified parts of digestive tract; Z85.828 Personal history of other malignant neoplasm of skin
CPT/HCPCS: 36415; 70450; 71045; 80048; 80053; 81001; 83605; 83615; 83735; 83880; 84100; 84484; 85025; 85379; 85651; 86140; 87040; 87081; 87086; 93005; 94640; 96365; 96375; 96376; 97112; 97116; 97163-GP; 97530; 99285; J0360; J0696; J1644; J1940; J2270; J2405; J3490; J7030; Q0092

== ENCOUNTER 2021-12-16 19:18 | Inpatient (IN) | payer MEDICARE, OTHER ==
[~2021-12-16] VITALS: Ht 157.5 cm; Wt 59.9 kg
[2021-12-16 19:25] VITALS: BP 180/75
--- NOTE | 2021-12-16 19:25 | NUR ---
SWAB FOR YAJAIRA, INFLUENZA SENT TO LAB
--- NOTE | 2021-12-16 19:28 | NUR ---
TO LOBBY A/W BED VIA W/C
--- NOTE | 2021-12-16 21:18 | NUR ---
pt w/c assisted to bed#9
--- NOTE | 2021-12-16 21:22 | NUR ---
Dr. Hernandez examining patient.
--- NOTE | 2021-12-16 21:29 | NUR ---
89 yo f bib self with c/c of dry cough xwedneday. +sob. +body aches +n/v. denies fever, diarrhea, chills and chest pain. hx:kd, htn, hyperlipidemia, ra allergy:asa
[2021-12-16 21:47] LABS: BASOPHILS # (AUTO) 0.1 K/uL (0.00-0.22); BASOPHILS % (AUTO) 0.8 % (0.0-2.0); EOSINOPHILS % (AUTO) 0.8 % (0.0-4.0); HEMATOCRIT 34.4 % (36-48); HEMOGLOBIN 11.4 g/dL (12.0-16.0); LYMPHOCYTES # (AUTO) 0.8 K/uL (2.5-16.5); LYMPHOCYTES % (AUTO) 12.6 % (20.5-51.1); MEAN CORPUSCULAR HEMOGLOBIN 28 pg (27-31); MEAN CORPUSCULAR HGB CONC 33 g/dL (33-37); MEAN CORPUSCULAR VOLUME 83.5 fL (80-94); MONOCYTES # (AUTO) 0.5 K/uL (0.8-1.0); MONOCYTES % (AUTO) 8.6 % (1.7-9.3); NEUTROPHILS # (AUTO) 4.8 K/uL (1.8-7.7); NEUTROPHILS % (AUTO) 77.2 % (42.2-75.2); PLATELET COUNT (AUTO) 176 K/uL (140-450); RED BLOOD CELL COUNT(AUTO) 4.11 MIL/uL (4.20-5.40); RED CELL DISTRIBUTION WIDTH 16.8 % (11.6-13.7); WHITE BLOOD COUNT (AUTO) 6.2 K/uL (4.8-10.8)
[2021-12-16 22:13] LABS: ALBUMIN 3.6 g/dL (3.4-5.0); ANION GAP 14.5 (8-16); ASPARTATE AMINOTRANSFERASE 23 U/L (15-37); CARBON DIOXIDE 26.5 mmol/L (21-32); CHLORIDE 103 mmol/L (98-107); CREATININE 1.5 mg/dL (0.6-1.3); GLUCOSE 115 mg/dL (74-106); SODIUM SERUM 140 mmol/L (136-145); TOTAL BILIRUBIN 0.6 mg/dL (0.0-1.0); UREA NITROGEN, BLOOD 32 mg/dL (7-18)
[2021-12-16] MEDS ORDERED: HEPARIN PER PHARMACY MC STA (22:34)
[2021-12-16] MEDS ORDERED: hePARIN / DEXT 5% PREMIX 250 ML IV ONE (22:35)
[2021-12-16 23:22] LABS: PROTHROMBIN TIME 12.2 secs (10.8-13.4)
[2021-12-17] VITALS (7 sets, daily range): BP systolic 106–215; BP diastolic 66–101
[2021-12-17] MEDS ORDERED: ACETAMINOPHEN EXTRA STRENGTH 500 MG TAB ONE (00:05)
[2021-12-17] MEDS ORDERED: ACETAMINOPHEN EXTRA STRENGTH 500 MG TAB PO ONE (00:05)
--- NOTE | 2021-12-17 00:53 | NUR ---
pt is awake and alert. all needs met at this time.
--- NOTE | 2021-12-17 02:09 | NUR ---
pt appears to be resting with equal rise and fall of chest wall. pt opens eyes to sound. pt on athletic monitor. all needs met at this time. bed locked in lowest position, side rails x2 for safety.
[2021-12-17] MEDS ORDERED: ONDANSETRON 4 MG/2 ML VIAL IM/IVP PRN (03:25)
[2021-12-17] MEDS ORDERED: MORPHINE SULFATE 2 MG/ML SYR IVP PRN (03:25)
[2021-12-17] MEDS ORDERED: POTASSIUM CHLORIDE 10 MEQ TABER PO PRN (03:25)
[2021-12-17] MEDS ORDERED: HYDROcodone/APAP 5/325 MG 1 TAB TAB PO PRN (03:25)
[2021-12-17] MEDS ORDERED: DOCUSATE SODIUM 100 MG GELCAP PO PRN (03:25)
[2021-12-17] MEDS ORDERED: MAGNESIUM OXIDE 400 MG TAB PO PRN (03:25)
[2021-12-17] MEDS ORDERED: SODIUM PHOS / POTASSIUM PHOS 1 PKT PDR PO PRN (03:25)
[2021-12-17 04:33] LABS: CHOL/HDL RATIO 2.7 (1-4.5); MAGNESIUM 1.7 mg/dL (1.8-2.4); PHOSPHORUS 4.5 mg/dL (2.5-4.9)
[2021-12-17] MEDS: NACL 0.9% 1,000 ML IV SCH (05:24)
--- NOTE | 2021-12-17 05:25 | NUR ---
20 g to left fa, unable to draw labs from this line. lab made aware.
--- NOTE | 2021-12-17 05:49 | NUR ---
lab at bedside
[2021-12-17 06:02] LABS: BASOPHILS % (AUTO) 0.7 % (0.0-2.0); EOSINOPHILS % (AUTO) 0.4 % (0.0-4.0); HEMATOCRIT 31.8 % (36-48); HEMOGLOBIN 10.5 g/dL (12.0-16.0); LYMPHOCYTES # (AUTO) 1.4 K/uL (2.5-16.5); LYMPHOCYTES % (AUTO) 24.1 % (20.5-51.1); MEAN CORPUSCULAR HEMOGLOBIN 28 pg (27-31); MEAN CORPUSCULAR HGB CONC 33 g/dL (33-37); MEAN CORPUSCULAR VOLUME 83.3 fL (80-94); MONOCYTES # (AUTO) 0.6 K/uL (0.8-1.0); MONOCYTES % (AUTO) 9.9 % (1.7-9.3); NEUTROPHILS # (AUTO) 3.8 K/uL (1.8-7.7); NEUTROPHILS % (AUTO) 64.9 % (42.2-75.2); PLATELET COUNT (AUTO) 162 K/uL (140-450); RED BLOOD CELL COUNT(AUTO) 3.82 MIL/uL (4.20-5.40); RED CELL DISTRIBUTION WIDTH 17.3 % (11.6-13.7); WHITE BLOOD COUNT (AUTO) 5.8 K/uL (4.8-10.8)
[2021-12-17 06:16] LABS: ANION GAP 14.6 (8-16); CARBON DIOXIDE 25.2 mmol/L (21-32); CHLORIDE 104 mmol/L (98-107); CREATININE 1.4 mg/dL (0.6-1.3); GLUCOSE 105 mg/dL (74-106); POTASSIUM 3.8 mmol/L (3.5-5.1); SODIUM SERUM 140 mmol/L (136-145); UREA NITROGEN, BLOOD 31 mg/dL (7-18)
[2021-12-17 06:22] LABS: PROTHROMBIN TIME 13.4 secs (10.8-13.4)
--- NOTE | 2021-12-17 07:30 | NUR ---
pt calm and resting. denies any complaints at this time.
--- NOTE | 2021-12-17 07:59 | NUR ---
Patient will be admitted to care of DR BROWN. Admited to TELE. Will go to [id number]. Belongings list completed. Report to BRYON MILLER.
--- NOTE | 2021-12-17 08:00 | NUR ---
RECEIVED PT FROM ER NURSE. PT A/O X4. ABLE TO MAKE NEEDS KNOWN. RR EVEN & UNLABORED. O2 SATURATION @ 99% ON 2L NC. HEPARIN DRIP @ 9.5 ML/HR INFUSING ON RAC #20. L AC #20 DRESSING C/D/I. MRSA OF NARES TAKEN AND SENT TO LAB. TELE, SR. INTERMITTENT COUGH NOTED. NEEDS ALL MET AT THIS TIME ALL SAFETY MEASURES IN PLACE.
--- NOTE | 2021-12-17 08:14 | NUR ---
CONTACTED REGARDING IF MD WANTS TO CONTINUE HEPARIN DRIP. ALSO CONTACTED DR. BROWN FOR PRN BLOOD PRESSURE MED. PT'S BP 190/96, HR 69. AWAITING RESPONSE.
--- NOTE | 2021-12-17 08:51 | NUR ---
CONTACTED DR. BROWN REGARDING PTT LEVEL. AWAITING RESPONSE.
[2021-12-17] MEDS ORDERED: HEPARIN PER PHARMACY MC PRN (09:00)
--- NOTE | 2021-12-17 09:00 | NUR ---
MD ORDER FOR HEPARIN PER PROTOCOL AND HYDRALAZINE 5MG IVP FOR SBP >160. ORDERS INPUTTED.
--- NOTE | 2021-12-17 09:36 | NUR ---
PATIENT HAS BEEN SCREENED AND CATEGORIZED MODERATE NUTRITION RISK. PATIENT WILL BE SEEN WITHIN 3-5 DAYS OF ADMISSION. 12/19/2209/26/[address]
[2021-12-17] MEDS: hydrALAZINE 20 MG/ML VIAL IVP PRN (09:44)
[2021-12-17] MEDS: ACETAMINOPHEN 325 MG TAB PO PRN (09:48)
[2021-12-17] MEDS ORDERED: hePARIN / DEXT 5% PREMIX 250 ML IV SCH (09:55)
--- NOTE | 2021-12-17 10:15 | NUR ---
CONTACTED MD REGARDING PHARMACY RECOMMENDATION. MD ORDER PER PHARMACY RECOMMENDATION. MD ORDER FOR NEW PTT LABS AND TO STOP HEPARIN. HEPARIN STOPPED AND FLUSHED WITH NS. PT DENIES COUGH AT THIS TIME. DENIES CHEST PAIN. HOB ELEVATED. ON 2L NC. RR EVEN & UNLABORED. NEEDS ALL MET AT THIS TIME. ALL SAFETY MEASURES IN PLACE.
--- NOTE | 2021-12-17 11:24 | NUR ---
SPOKE WITH PHARMACY AND PHARMACY STATES TO WAIT FOR PTT LEVEL AND THEN FOLLOW PHARMACY PROTOCOL FOR HEPARIN DRIP. AWAITING RESULTS.
--- NOTE | 2021-12-17 11:30 | NUR ---
PLAN OF CARE DISCUSSED WITH SIENA TRAN (SON) AND ASKED WHO THEY WANTED PRIMARY CONTACT FOR PT CARE UPDATES. SIENA STATES, "DANNA".
[2021-12-17] MEDS: guaiFENesin DM 200/20 MG-10 ML 10 ML UDC PO PRN (12:07)
--- NOTE | 2021-12-17 13:30 | NUR ---
CHARGE NURSE STATES LAB CALLED FOR PTT VALUE. CHECKED LAB RESULTS WITH NO PTT VALUE. AWAITING PTT VALUE. PHARMACY ALSO STATES LAB NEEDS TO INPUT VALUE BEFORE HEPARIN DRIP CALCULATIONS.
--- NOTE | 2021-12-17 13:45 | NUR ---
CONTACTED LAB FOR PTT RESULTS AND WAS TRANSFERRED TO CHEMISTRY AND THEY STATE TO CONTACT SALES REPRESENTATIVE [employer] FOR RESULTS. NO PICKUP FROM [facility]. WILL FOLLOW-UP.
--- NOTE | 2021-12-17 14:45 | NUR ---
PLAN OF CARE UPDATED WITH DANNA BALDERAS. EXPLAINED SHE WILL BE THE PRIMARY CONTACT FOR PT'S UPDATES. CONTACTED GRINDER SET UP OPERATOR JIG AGAIN FOR PTT RESULTS PENDING. STATES WILL FOLLOW-UP WITH LAB.
--- NOTE | 2021-12-17 15:24 | NUR ---
CONTACTED CHEMISTRY AND EXPLAINED WE NEEDED. PTT RESULTS. PTT RESULTS FINALLY INPUTTED. CONTACTED PHARMACY AND STATES HEPARIN DRIP @ 8.5 ML/HR. HEPARIN DRIP STARTED PER PHARMACY. Addendum: 12/17/21 at 1556 by Agency Nurse PAUL Garcia RN NOT STARTED.
--- NOTE | 2021-12-17 15:50 | NUR ---
SPOKE WITH LAB AND THEY STATE THEY NEVER RECEIVED THE ORDER. EXPLAINED THAT ORDER SAYS "COMPLETE" AND THAT A PTT LEVEL WAS DRAWN. LAB STATES THEY WILL REDRAW. AWAITING RESULTS. NO HEPARIN DRIP INFUSING AT THIS TIME.
--- NOTE | 2021-12-17 15:51 | NUR ---
HEPARIN DRIP INFUSING AT 9.5 ML/HR.
--- NOTE | 2021-12-17 16:40 | NUR ---
PT COMPLAINED OF SOB. RR LABORED, USE OF ACCESSORY MUSCLES, CONTACTED RT. BP 213/116, HR 114, O2 SATURATION @ 88%. CONTACTED MD FOR NEW ORDERS. SPOKE WITH WORKERS COMPENSATION CLAIMS SPECIALIST AND STATES PT STARTED GOING ST AROUND 1630. PT LOOKS PALE, DIAPHORETIC. AWAITING FOR MD ORDER.
--- NOTE | 2021-12-17 16:46 | NUR ---
10 MG HYDRALAZINE GIVEN IVP.
--- NOTE | 2021-12-17 16:48 | NUR ---
CODE RAPID CALLED. RT AT BEDSIDE. O2 SATURATION 2 88%. NONREBREATHER PLACED. O2 SATURATION @ 98%. CONTACTED . ORDER FOR STAT EKG. ORDER FOR HYDRALAZINE 10 MG IVP. HEPARIN DRIP INFUSING PER PHARMACY PROTOCOL.
[2021-12-17] MEDS ORDERED: LORazepam 2 MG/ML VIAL IVP PRN (16:50)
[2021-12-17] MEDS ORDERED: hydrALAZINE 20 MG/ML VIAL IVP ONE (16:50)
[2021-12-17] MEDS ORDERED: LORazepam 2 MG/ML VIAL ONE (16:56)
--- NOTE | 2021-12-17 17:00 | NUR ---
DR. PALMER AT BEDSIDE. VERBAL ORDER FOR CHEST XRAY AND TROPONIN SERIES. O2 SATURATION @ 96%.
--- NOTE | 2021-12-17 17:30 | NUR ---
DR. PALMER SPOKE WITH DR. BROWN AND ORDER FOR TRANSFER TO ICU. PT TRANSPORTED VIA BED. BEDSIDE REPORT GIVEN TO ICU NURSE, JEWLE.
--- NOTE | 2021-12-17 17:40 | NUR ---
PT TRANSFERRED TO ICU BED 7 FROM TELEMETRY. RT AT BEDSIDE PLACING BIPAP ON PT. HEPARIN DRIP INFUSING TO RAC. PT CURRENTLY HAS LABORED BREATHING TACHYPNIC, HYPERTENSIVE AND TACHYCARDIC.
[2021-12-17] MEDS: NITROGLYCERIN 50 MG/D5W PREMIX 250 ML IV PRN (18:02)
--- NOTE | 2021-12-17 18:02 | NUR ---
NITROGLYCERIN DRIP STARTED AT 5MCG/MIN PER PROTOCOL. INFUSING TO LAC.
[2021-12-17] MEDS ORDERED: NITROPRUSSIDE 50 MG in DEXTROSE 5% 250 ML IV PRN (19:05)
--- NOTE | 2021-12-17 19:33 | NUR ---
REPORT GIVEN TO DAVIDSON RN, ALL CARES ENDORSED.
--- NOTE | 2021-12-17 21:35 | NUR ---
1910: REC'D PT FROM PAUL HOLLOWAY TO ASSUME PLAN OF CARE. PT'S A/0X4, DENIES PAIN. ON BIAP AT 45% FI02 SATS >98%. DAUGHTER AT THE BEDSIDE. PT'S ON HEPARIN DRIP AT 9.5CC/HR AND NITRO DRIP AT 40CC/HR. SBP IN THE 160'S HR LOW 100'S. HAS PIVLINES ON BOTH AC'S. PT'S HARD STICK AND NEEDS PICCLINE, PT'S DAUGHTER AND PT AGREED PICCLINE. 2019: called DR. BROWN FOR ORDER. ORDER GIVEN FOR PICCLINE 2021: CONSENT SIGNED FOR PICCLINE. 2100: PT'S NOW ON HFNC SATS 97% SAFETY AND SKIN PROTOCOL ON PROGRESS. DENIES PAIN. INSTRUCTED TO CALL IN CASE ONSET OF PAIN OCCUR. CALL LIGHT IN REACH.
[2021-12-18] VITALS (21 sets, daily range): BP systolic 153–194; BP diastolic 66–116
[2021-12-18] MEDS: NACL 0.9% 1,000 ML IV SCH (02:27)
--- NOTE | 2021-12-18 03:00 | NUR ---
2330: PT PULLED IV OUT, CONFUSED AND HAVE TO CHANGED LINEN AND GOWN. REORIENTED TO ROOM/UNIT AND WHAT'S HAPPENING. 0200: PT HAD ANOTHER EPISODE OF CONFUSION. PT SAID SHE'S AT HOME AND WANTS TO WALK AND GO TO THE BATHROOM. GIVEN BEDPAN. HAS A SMALL BM SOFT AND BROWN IN COLOR. 0300: PT PULLED OUT IVLINE AND BLOOD ALL OVER THE BED TO THE FLOOR. CONFUSED AND DON'T KNOW WHERE SHE AT. REORIENTED TO ROOM/UNIT AND SURROUNDINGS. CHANGED ALL BED LINENS, GOWN AND BATH GIVEN AGAIN. SAFETY AND SKIN PROTOCOL ON PROGRESS. CONTINUE MONITOR.
[2021-12-18 03:41] LABS: APPEARANCE,URINE CLEAR (CLEAR); BILIRUBIN,URINE NEGATIVE (NEGATIVE); BLOOD, URINE NEGATIVE (NEGATIVE); COLOR,URINE YELLOW (YELLOW); LEUKOCYTE ESTERASE ,URINE TRACE (NEGATIVE); NITRITE, URINE NEGATIVE (NEGATIVE); UGLUCOSE NEGATIVE (NEGATIVE)
[2021-12-18] MEDS: hydrALAZINE 20 MG/ML VIAL IVP PRN ×2 (04:05→15:36)
[2021-12-18] MEDS: NITROGLYCERIN 50 MG/D5W PREMIX 250 ML IV PRN ×4 (04:07→23:19)
--- NOTE | 2021-12-18 04:25 | NUR ---
PER NURSE, PT WAS TAKEN OFF HFNC TO REGULAR NASAL CANNULA AT 6L SATING 100% CURRENTLY IN NO RESPIRATORY DISTRESS.
[2021-12-18 05:59] LABS: BASOPHILS % (AUTO) 0.5 % (0.0-2.0); HEMATOCRIT 30.2 % (36-48); HEMOGLOBIN 10.2 g/dL (12.0-16.0); LYMPHOCYTES # (AUTO) 1.3 K/uL (2.5-16.5); MEAN CORPUSCULAR HEMOGLOBIN 28 pg (27-31); MEAN CORPUSCULAR HGB CONC 34 g/dL (33-37); MEAN CORPUSCULAR VOLUME 83.2 fL (80-94); MONOCYTES # (AUTO) 0.6 K/uL (0.8-1.0); MONOCYTES % (AUTO) 8.9 % (1.7-9.3); NEUTROPHILS # (AUTO) 5.2 K/uL (1.8-7.7); NEUTROPHILS % (AUTO) 72.6 % (42.2-75.2); PLATELET COUNT (AUTO) 160 K/uL (140-450); RED BLOOD CELL COUNT(AUTO) 3.63 MIL/uL (4.20-5.40); RED CELL DISTRIBUTION WIDTH 17.2 % (11.6-13.7); WHITE BLOOD COUNT (AUTO) 7.1 K/uL (4.8-10.8)
[2021-12-18 06:13] LABS: PROTHROMBIN TIME 12.3 secs (10.8-13.4)
[2021-12-18 06:21] LABS: ANION GAP 17.5 (8-16); CARBON DIOXIDE 22.1 mmol/L (21-32); CHLORIDE 102 mmol/L (98-107); CREATININE 1.5 mg/dL (0.6-1.3); GLUCOSE 121 mg/dL (74-106); POTASSIUM 3.6 mmol/L (3.5-5.1); SODIUM SERUM 138 mmol/L (136-145); UREA NITROGEN, BLOOD 38 mg/dL (7-18)
--- NOTE | 2021-12-18 07:15 | NUR ---
PT'S ON 3 LITERS 02 SATS 100%, SBP ON THE 160'S-170'S. HR 80'S-90'S. GIVEN ONE TIME APRESOLINE ORDERED PRN FOR SBP>170. CONTINUE NITRO DRIP. NO FALLS AND NO INJURY DURING SHIFT. ENDORSED PT TO RN JEWEL TO ASSUME PLAN OF CARE. PT'S SLEEPING, AROUSABLE.
--- NOTE | 2021-12-18 07:20 | NUR ---
SBAR REPORT RECEIVED FROM DAVIDSON RN, ALL CARES ASSUMED. PT RESTING IN BED WITH EYES CLOSED. NITROGLYCERIN DRIP AND HEPARIN DRIP INFUSING PER TITRATION PROTOCOL. RAC AND LAC IV BOTH PATENT, FLUSHED WITH NS. PT ON 3L NC, VSS. BED IN LOW, LOCKED POSITION. CALL LIGHT WITHIN REACH.
[2021-12-18] MEDS: PIPERACILLIN/TAZOBACTAM 3.375 GM in DEXTROSE 5% 50 ML IV SCH (18:02)
[2021-12-18] MEDS: carvediloL 12.5 MG TAB PO SCH (18:03)
--- NOTE | 2021-12-18 19:07 | NUR ---
SBAR REPORT GIVEN TO CHRISTINA MILLER, ALL CARES ENDORSED
--- NOTE | 2021-12-18 19:10 | NUR ---
TRANSFER OF CARE FROM DAY SHIFT RN (PAUL GARCES). PATIENT RECEIVED IN BED, SLEEPING, EASY TO AROUSE. PATIENT DOES NOT REPORT ANY CURRENT COMPLAINTS HAS NITRO DRIP INFUSING AT 150MCG/MIN. WILL CONTINUE TO MONITOR PATIENT AND ADDRESS ALL NEEDS PER MD ORDERS
[2021-12-18] MEDS: ACETAMINOPHEN 325 MG TAB PO PRN (22:12)
--- NOTE | 2021-12-18 22:15 | NUR ---
NOTIFED DR MAHER REGARDING PTS TEMP 103.1; NEW ORDERS RECEIVED.CARRIED OUT
--- NOTE | 2021-12-18 22:25 | NUR ---
LAB AT BEDSIDE FOR BLOOD DRAW
[2021-12-18 22:36] LABS: BASOPHILS % (AUTO) 0.4 % (0.0-2.0); HEMATOCRIT 26.4 % (36-48); HEMOGLOBIN 8.8 g/dL (12.0-16.0); LYMPHOCYTES % (AUTO) 16.4 % (20.5-51.1); MEAN CORPUSCULAR HEMOGLOBIN 28 pg (27-31); MEAN CORPUSCULAR HGB CONC 33 g/dL (33-37); MEAN CORPUSCULAR VOLUME 82.8 fL (80-94); MONOCYTES # (AUTO) 0.5 K/uL (0.8-1.0); MONOCYTES % (AUTO) 8.4 % (1.7-9.3); NEUTROPHILS # (AUTO) 4.8 K/uL (1.8-7.7); NEUTROPHILS % (AUTO) 74.8 % (42.2-75.2); PLATELET COUNT (AUTO) 128 K/uL (140-450); RED BLOOD CELL COUNT(AUTO) 3.18 MIL/uL (4.20-5.40); RED CELL DISTRIBUTION WIDTH 17.2 % (11.6-13.7); WHITE BLOOD COUNT (AUTO) 6.4 K/uL (4.8-10.8)
[2021-12-18 22:54] LABS: ALBUMIN 2.8 g/dL (3.4-5.0); ANION GAP 15.8 (8-16); ASPARTATE AMINOTRANSFERASE 74 U/L (15-37); CARBON DIOXIDE 23.3 mmol/L (21-32); CHLORIDE 97 mmol/L (98-107); CREATININE 2.1 mg/dL (0.6-1.3); GLUCOSE 175 mg/dL (74-106); POTASSIUM 4.1 mmol/L (3.5-5.1); SODIUM SERUM 132 mmol/L (136-145); TOTAL BILIRUBIN 0.3 mg/dL (0.0-1.0); UREA NITROGEN, BLOOD 51 mg/dL (7-18)
--- NOTE | 2021-12-18 23:03 | NUR ---
RECEIVED PHONE CALL FROM PATIENT'S DTR DANNA [phone]. PROVIDED UPDATE ON PATIENT'S CURRENT STATUS. INFORMED DTR THAT PATIENT HAD A TEMP OF 103.1; TYLENOL PER MD ORDERS AND COOLING MEASURES WERE INITIATED. INFORMED DTR THAT PATIENT HAD RECENT LAB WORK WELL BLOOD CULTURES DONE TO HELP DETERMINE UNDERLYING CAUSE FOR PATIENT'S SYMPTOMS. DTR HAS BEEN REASSURED THAT PATIENT IS CURRENTLY STABLE AND WE WILL CONTINUE TO MONITOR AND TREAT ALL SYMPTOMS ORDERED.
[2021-12-19] VITALS (21 sets, daily range): BP systolic 119–188; BP diastolic 59–93
--- NOTE | 2021-12-19 | NUR ---
FOLLOW UP ON PATIENT'S ELEVATED TEMP: ORAL TEMP RECHECKED AND PATIENT IS NOW 101.8. WILL CONTINUE TO MONITOR PATIENT AND IMPLEMENT COOLING MEASURES
[2021-12-19] MEDS: guaiFENesin DM 200/20 MG-10 ML 10 ML UDC PO PRN (02:36)
[2021-12-19 05:12] LABS: BASOPHILS % (AUTO) 0.4 % (0.0-2.0); HEMATOCRIT 24.8 % (36-48); HEMOGLOBIN 8.4 g/dL (12.0-16.0); LYMPHOCYTES # (AUTO) 0.7 K/uL (2.5-16.5); LYMPHOCYTES % (AUTO) 13.3 % (20.5-51.1); MEAN CORPUSCULAR HEMOGLOBIN 28 pg (27-31); MEAN CORPUSCULAR HGB CONC 34 g/dL (33-37); MEAN CORPUSCULAR VOLUME 82.5 fL (80-94); MONOCYTES # (AUTO) 0.3 K/uL (0.8-1.0); MONOCYTES % (AUTO) 5.9 % (1.7-9.3); NEUTROPHILS # (AUTO) 4.2 K/uL (1.8-7.7); NEUTROPHILS % (AUTO) 80.4 % (42.2-75.2); PLATELET COUNT (AUTO) 119 K/uL (140-450); RED CELL DISTRIBUTION WIDTH 17.3 % (11.6-13.7); WHITE BLOOD COUNT (AUTO) 5.2 K/uL (4.8-10.8)
[2021-12-19 05:26] LABS: ANION GAP 15.6 (8-16); CARBON DIOXIDE 23.2 mmol/L (21-32); CHLORIDE 94 mmol/L (98-107); CREATININE 2.2 mg/dL (0.6-1.3); GLUCOSE 266 mg/dL (74-106); POTASSIUM 3.8 mmol/L (3.5-5.1); SODIUM SERUM 129 mmol/L (136-145); UREA NITROGEN, BLOOD 52 mg/dL (7-18)
[2021-12-19] MEDS: NITROGLYCERIN 50 MG/D5W PREMIX 250 ML IV PRN (05:32)
[2021-12-19] MEDS: PIPERACILLIN/TAZOBACTAM 3.375 GM in DEXTROSE 5% 50 ML IV SCH ×3 (05:59)
--- NOTE | 2021-12-19 07:15 | NUR ---
REPORT RECEIVED FROM PAUL VASQUEZ.
--- NOTE | 2021-12-19 07:20 | NUR ---
TRANSFER OF CARE TO DAY SHIFT (MAY, RN); UPDATES PROVIDED.
[2021-12-19] MEDS: carvediloL 12.5 MG TAB PO SCH ×2 (08:29→17:40)
--- NOTE | 2021-12-19 08:30 | NUR ---
PATIENT AWAKE AND RESPONDS APPROPRIATELY TO QUESTIONS. FOLLOWS COMMANDS. MOVES ALL EXTREMITIES. HEART SOUNDS REGULAR. MONITOR ST. NO PERIPHERAL EDEMA NOTED. PERIPHERAL PULSES PALPABLE. CHARLEEN MIDLINE CATHETER IN PLACE WITH NTG INFUSION AT 150MCG/MIN. DECREASED TO 100MCG/MIN. POSTERIOR LUNG SOUNDS WITH CRACKLES BILATERALLY. PRODUCTIVE COUGH OF THICK WHITE/HYMAN SECRETIONS. O2 AT 3L/NC. SAO2 90-93%. ACTIVE BOWEL SOUNDS IN ALL QUAD. LACK OF APPETITE. DRINKING SIPS OF WATER, JUICE, ENSURE. NO URINE OUTPUT. NO BM.
[2021-12-19] MEDS ORDERED: NIFEdipine 30 MG TABER PO SCH (09:00)
--- NOTE | 2021-12-19 09:00 | NUR ---
DR. BAEZ HERE TO SEE PATIENT. UPDATED ON STATUS.
--- NOTE | 2021-12-19 10:30 | NUR ---
DAUGHTER HERE TO SEE. UPDATED ON STATUS AND ORDERS. PATIENT COUGHED UP SECRETIONS AND SPUTUM SPECIMEN SENT FOR CULTURE.
[2021-12-19] MEDS ORDERED: ALBUTEROL SULFATE/IPRATROPIU 3 ML SOL IH PRN (10:55)
[2021-12-19] MEDS ORDERED: ALBUTEROL SULFATE/IPRATROPIU 3 ML SOL IH SCH (11:00)
[2021-12-19] MEDS: PIPERACILLIN/TAZOBACTAM 2.25 GM in DEXTROSE 5% 50 ML IV SCH ×2 (12:38→17:40)
--- NOTE | 2021-12-19 12:45 | NUR ---
DR. VILLAREAL HERE TO SEE PATIENT. UPDATED ON STATUS, IVF, HOME LASIX DOSE AND NO URINE OUTPUT. ORDERS RECEIVED.
--- NOTE | 2021-12-19 13:14 | NUR ---
P.T. NOTES P.T. EVAL COMPLETED; REFER TO EVAL FOR DETAILS.
[2021-12-19] MEDS: ALBUTEROL SULFATE/IPRATROPIU 3 ML SOL IH SCH ×2 (13:22→19:13)
--- NOTE | 2021-12-19 14:00 | NUR ---
MARTINEZ INSERTED WITHOUT DIFFICULTY. 350CC YELLOW URINE RETURNED IMMEDIATELY.
[2021-12-19] MEDS ORDERED: NIFEdipine 60 MG TABER PO SCH (15:00)
--- NOTE | 2021-12-19 15:35 | NUR ---
DC PLANNING SW OUTREACHED TO PTS SON SIENA TO GATHER COLLATERAL INFORMATION, HOWEVER, NO ANSWER. SW THEN OUTREACHED TO DANNA BRISENO, PT DAUGHTER TO GATHER COLLATERAL INFORMATION TO COMPLETE ASSESSMENT. DANNA REPORTS THAT PT RESIDES IN A SINGLE STORY HOME WITH PT'S BROTHER. EMERGENCY CONTACTS ON FILE ARE SIENA TRAN, SON, AND DANNA BRISENO, DAUGHTER, . PATIENT IS REPORTED TO MEET WITH PCP, NEEDED, LAST VISIT; 2 MONTHS AGO. PATIENT IS MEDICATION COMPLIANT AND FAMILY DENIES BARRIERS IN ACQUIRING MEDICATION. PATIENT RECEIVES MEDICATION FROM [facility] IN [place], WHEN NEEDED. PATIENT IS REPORTED TO BE AMBULATORY WITH DME ASSISTANCE; FWW. PATIENT DOES REQUIRE SOME ASSISTANCE WITH ADLS WHICH FAMILY AIDS IN. PATIENT IS REPORTED TO HAVE RECEIVED HOME HEALTH IN AUGUST 17 HOWEVER, FAMILY UNABLE TO RECALL NAME OF AGENCY, HH SET UP BY [facility]. FAMILY DENIES HX OF SNF PLACEMENT, DIABETES AND DIALYSIS TX. PATIENT IS REPORTED TO HAVE ACCESS TO [employer] SOURCE AT HOME. SW INQUIRED ON RESOURCES NEEDED, FAMILY DECLINED. IVANIA EXPLAINED TO DANNA THAT WHEN PATIENT IS STABLE FOR TRANSFER THAT [facility] MAY REQUEST TO TAKE THEIR PATIENT BACK TO ONE OF THEIR [facility] FACILITIES. DANNA IN UNDERSTANDING, NOTIFIED DANNA THAT SAMUEL OR SW WILL CALL TO NOTIFY FAMILY IF PATIENT IS TRANSFERRED TO [facility].
--- NOTE | 2021-12-19 16:31 | NUR ---
DC PLANNING: PATIENT HAS AN ORDER STABLE FOR TRANSFER FAXED TO [facility] [phone] CM TO FOLLOW Addendum: 12/20/21 at 1252 by Marycarmen Ochoa RN DC PLANNIN YRS OLD FEMALE PATIENT WAS ADMITTED FROM HOME WITH A DX OF WOUND INFECTION. PATIENT HAS A HX OF ARTHRITIS KIDNEY DISEASE, HLD, HTN AND CHF. 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 RAPID COVID TEST NEGATIVE ON HIGH FLOW O2 5L/NC. ADMINISTERED IV LASIX, ZOSYN IV ABX . CONSULTED WITH PULMO AND NEPHRO. DC PLAN TO TRANSFER TO [facility] WHEN STABLE. Addendum: 12/20/21 at 1414 by Marycarmen Ochoa RN DC PLANNING: [facility] SPOKE WITH IMANI CASE VERIFYING SPECIALIST NOTIFIED HER THAT PATIENT IS NOT STABLE FOR TRANSFER. PATIENT IS ON HIGH FLOW 20L/NC SATING 92% FIO2 100% LOW BP 83/45 STARTED ON LEVOPHED DRIP. NEPHRO CARDIO AND PULMO FOLLOWING. CONSULTED WITH YUN. SAMUEL TO FOLLOW
--- NOTE | 2021-12-19 19:00 | NUR ---
ERROR ON ADMISSION HX DONE TODAY, WRONG PT
--- NOTE | 2021-12-19 19:24 | NUR ---
POST TREATMENT, PT HAD INCREASED PRIOR TO TREATMENT, DID NOT RESPLVE POST TREATMENT, PLACED PATIENT ON HIGH FLOW NASAL CANNULA TO HELP HER WORK OF BREATHING. PT IS TOLERATING WELL, WILL CONTINUE TO MONITOR
--- NOTE | 2021-12-19 19:36 | NUR ---
REPORT GIVEN TO PAUL KEENE. SAO2 DECREASED TO 88%. RT CALLED AND DUONEB GIVEN. O2 CHANGED TO HI KACIE 20L/FIO2 50%. BP STABLE.
[2021-12-19] MEDS: ACETAMINOPHEN 325 MG TAB PO PRN (20:16)
--- NOTE | 2021-12-19 21:15 | NUR ---
PHONE CALL FROM ZAID [facility],[employer] WORKER WORKING WITH CASE MANAGEMENT.UPDATED ON PTS PRESENT CONDITION.ZAID GAVE TELECOM ENGINEER ROOM FOR TELE, TELECOM ENGINEER TOLD HER THAT PT IS ICU STATUS HERE, SHE SAID THEY HAVE AN ORDER FOR TELE.ACCEPTING MD IS JEANNETTE MOMIN.QUESTIONS ANSWERED,V/S GIVEN,MADE AWARE TEMP AT 1999 101.4 AND PT RECEIVED TYLENOL.INFORMED THAT PT ON HIGH FLOW FIO2 50% 25LPM, AT THIS POINT ZAID TOLD TELECOM ENGINEER THAT SHE WILL HAVE TO NOTIFY MERI BAKER.SAMUEL CASTILLO SPOKE WITH TELECOM ENGINEER.QUESTIONS ANSWERED.INFORMED THAT PT WAS GIVEN BREATHING TX ALSO.READ BACK CXR RESULT DONE EARLIER THIS SHIFT.MERI CASTILLO CLAMP TRUCK DRIVER SAID THAT TRANSFER IS CANCELLED.PAUL KEENE FOR PT AWARE.
[2021-12-19] MEDS: FUROSEMIDE 40 MG/4 ML VIAL IVP SCH (21:41)
[2021-12-19] MEDS: hydrALAZINE 25 MG TAB PO SCH (21:52)
--- NOTE | 2021-12-19 21:54 | NUR ---
PATIENT AWAKE ALERT NO C/O OF DISCOMFORT LUNGS DIMINISH SAT97% PATIENT ON MONITOR SINUS TACH TEMP 101.4 GIVEN 650 MG TYLENOL PO. PATIENT HAS MIDLINE NS 5 CC INFUSING PATIENT HAS HIGH FLOW 20 LITERS 50 %. PATIENT HAS A F/C DRAINING SMALL AMT YELLOW URINE. WELL CHECK TEMP 0000. PATIENT GIVEN APRESOLINE 50 MG 2100 B/P 139/90. ALSO GIVEN LASIX 40 MG IVP NO SIGNS OF DISTRESS.
[2021-12-20] VITALS (13 sets, daily range): BP systolic 98–135; BP diastolic 48–65
[2021-12-20] MEDS: PIPERACILLIN/TAZOBACTAM 2.25 GM in DEXTROSE 5% 50 ML IV SCH ×4 (00:04→17:07)
[2021-12-20] MEDS: guaiFENesin DM 200/20 MG-10 ML 10 ML UDC PO PRN (03:07)
--- NOTE | 2021-12-20 03:07 | NUR ---
INTERMITTENT NON PRODUCTIVE COUGH NOTED; COUGH MEDICATION GIVEN ORDERED
[2021-12-20] MEDS: hydrALAZINE 25 MG TAB PO SCH ×2 (05:00→13:00)
--- NOTE | 2021-12-20 05:16 | NUR ---
PT HAD NUMEROUS DESATURATION EPISODES THROUGHOUT THE NIGHT, ATTEMPTED TO TITRATE THE HIGH FLOW, AND PLACE THE PT ON A NASAL CANNULA, THE PT DID NOT TOLERATE AND DESATURATED INTO THE LOW 80'S. PLACED ON HIGH FLOW AT THIS TIME TO ALLEVIATE WORK OF BREATHING AND DE SATURATION. PT IS TOLERATING THE HIGH FLOW AT THIS TIME
[2021-12-20 05:23] LABS: BASOPHILS % (AUTO) 0.3 % (0.0-2.0); EOSINOPHILS % (AUTO) 0.1 % (0.0-4.0); HEMATOCRIT 26.9 % (36-48); HEMOGLOBIN 9.2 g/dL (12.0-16.0); LYMPHOCYTES # (AUTO) 0.8 K/uL (2.5-16.5); LYMPHOCYTES % (AUTO) 13.3 % (20.5-51.1); MEAN CORPUSCULAR HEMOGLOBIN 28 pg (27-31); MEAN CORPUSCULAR HGB CONC 34 g/dL (33-37); MEAN CORPUSCULAR VOLUME 80.4 fL (80-94); MONOCYTES # (AUTO) 0.3 K/uL (0.8-1.0); MONOCYTES % (AUTO) 5.8 % (1.7-9.3); NEUTROPHILS # (AUTO) 4.9 K/uL (1.8-7.7); NEUTROPHILS % (AUTO) 80.5 % (42.2-75.2); PLATELET COUNT (AUTO) 124 K/uL (140-450); RED BLOOD CELL COUNT(AUTO) 3.34 MIL/uL (4.20-5.40); RED CELL DISTRIBUTION WIDTH 16.9 % (11.6-13.7)
[2021-12-20 06:06] LABS: ANION GAP 18.4 (8-16); CARBON DIOXIDE 21.6 mmol/L (21-32); CHLORIDE 94 mmol/L (98-107); CREATININE 2.6 mg/dL (0.6-1.3); GLUCOSE 181 mg/dL (74-106); SODIUM SERUM 130 mmol/L (136-145); UREA NITROGEN, BLOOD 59 mg/dL (7-18)
[2021-12-20] MEDS: ACETAMINOPHEN 325 MG TAB PO PRN (06:25)
--- NOTE | 2021-12-20 07:25 | NUR ---
RECEIVED BEDSIDE REPORT FROM LORENZO KEENE RN, FOR CONTINUITY OF CARE. PT A/OX4, AWAKE AND RESPONSIVE. HIFLOW NC IN PLACE 20L FIO2 100%, TACHYPNEIC SHALLOW BREATHING. SR/ST ON MONITOR. CHARLEEN MIDLINE IN PLACE, SALINE LOCK. 20G IV TO L FA INFUSING NS TKO. PT REPORTS DECREASED APPETITE. BOWEL SOUNDS HYPOACTIVE. F/C TO GRAVITY. CLEAR YELLOW/ORANGE URINE OUTPUT. MILD WEAKNESS THROUGHOUT. STANDARD PRECAUTIONS. CALL LIGHT WITHIN REACH, BED LOCKED IN LOWEST POSITION.
[2021-12-20] MEDS: carvediloL 12.5 MG TAB PO SCH ×2 (07:35→16:19)
[2021-12-20] MEDS: FUROSEMIDE 40 MG/4 ML VIAL IVP SCH (08:04)
[2021-12-20] MEDS: ALBUTEROL SULFATE/IPRATROPIU 3 ML SOL IH SCH ×3 (08:09→20:15)
[2021-12-20] MEDS ORDERED: NIFEdipine 90 MG TABER PO SCH (09:00)
--- NOTE | 2021-12-20 09:20 | NUR ---
SEEN AND EXAMINED BY DR. WITT.
--- NOTE | 2021-12-20 10:32 | NUR ---
FAMILY AT BEDSIDE. UPDATED ON POC.
[2021-12-20] MEDS ORDERED: FUROSEMIDE 100 MG in DEXTROSE 5% 100 ML IV SCH (12:30)
--- NOTE | 2021-12-20 12:39 | NUR ---
BP 76/50. PT EKG IRREGULAR AND NOTED TO BE IN AFIB. OBTAINED [address] WITT AND OBTAINED ORDER FOR LEVOPHED. NOTIFIED RECYCLING ASSISTANT DR. HURST. NO NEW ORDERS. Addendum: 12/20/21 at 1349 by Renetta Carver RN FAMILY AT BEDSIDE. PT SLIGHTLY CONFUSED AND UNABLE TO ANSWER QUESTIONS APPROPRIATELY.
[2021-12-20] MEDS ORDERED: NOREPINEPHRINE 4 MG in DEXTROSE 5% 250 ML IV PRN (12:40)
--- NOTE | 2021-12-20 13:30 | NUR ---
CONVERTED BACK TO SINUS RHYTHM.
--- NOTE | 2021-12-20 13:47 | NUR ---
LEVOPHED AT 2 MCG/MIN. LAST BP 104/60. PT RESPONDING BETTER TO QUESTIONS.
--- NOTE | 2021-12-20 13:49 | NUR ---
SEEN AND EXAMINED BY DR. VILLAREAL. ORDERS FOR LASIX DRIP RECEIVED AND TO DECREASE NIFEDIPINE TO 60MG DAILY INSTEAD OF 90MG. Addendum: 12/20/21 at 1515 by Renetta Carver RN TIMESTAMP SHOULD BE 1210
--- NOTE | 2021-12-20 15:26 | NUR ---
12/20/21 RD INITIAL ASSESSMENT COMPLETED PLEASE REFER TO NUTRITION ASSESSMENT UNDER CARE ACTIVITY FOR ESTIMATED NUTRITIONAL NEEDS. 1. CONTINUE CARDIAC DIET TOLERATED. - IF PATIENT NEEDS DIALYSIS, RECOMMEND RENAL DIET. 2. RECOMMEND NEPRO TID FOR NUTRITION SUPPORT. -THIS PROVIDES AN ADDITIONAL 1275 KCAL AND [address] TO FOLLOW-UP 2-3 DAYS, HIGH RISK REVIEWED BY IZABEL MARRERO RD
--- NOTE | 2021-12-20 16:35 | NUR ---
MESSAGED DR. VILLAREAL REGARDING URINE OUTPUT. ONLY 10ML URINE OUTPUT SINCE BEGINNING LASIX DRIP AT 1324 AT 5 MG/HR. DR ADVISED TO INCREASE DRIP TO 10 MG/HR.
--- NOTE | 2021-12-20 17:25 | NUR ---
SEEN AND EXAMINED BY DR. HURST. ORDERS RECEIVED.
--- NOTE | 2021-12-20 19:25 | NUR ---
RECEIVED REPORT FROM JATIN MILLER. PT FAMILY MEMBER AT THE BEDSIDE COACHING PT IN BREATHING EXERCISE. WHEN SHE PRACTICE WHAT HE TEACH SHE SATURATE IN THE HI 90'S, WHEN SHE START SHALLOW BREATING ITNDROPS TO THE HI 80'S. PT IS ANXIOUS BUT THE FAMILY MEMBER CALMS HER . SHE DIDN'T EAT ANY OF HER DINNER. SHE DID DRINK A SMALL AMOUNT OF JUICE AND WATER. SHE IS ON HI FLOW 02 AT 100% WITH 25 LITERS.
--- NOTE | 2021-12-20 19:26 | NUR ---
ENDORSED BEDSIDE REPORT TO LORENZO LYON RN, FOR CONTINUITY OF CARE.
[2021-12-20] MEDS ORDERED: ISOSORBIDE DINITRATE 10 MG TAB PO SCH (21:00)
[2021-12-20] MEDS ORDERED: carvediloL 12.5 MG TAB PO SCH (21:00)
[2021-12-20] MEDS ORDERED: hydrALAZINE 25 MG TAB PO SCH (21:00)
--- NOTE | 2021-12-20 21:02 | NUR ---
PT WENT LOLA ON THE DAIRY HUSBANDMAN, HR DOWN TO 37. CODE WAS CALLED AND THE CODE TEAM RESPONDED QUICKLY.PT WAS ,PT WENT INTO [place], ASYSCODE ONGOING AT 2113 TOLE AND WAS INTUBATED AT [id number] PT IS IN V-FIB AND WAS SHOCKED ONCE AND HAD A RETURN OF SPONTANEOUS CIRCULATION BY 2141 SHE WAS BACK IN [place] RHYTHM. MORE MEDS GIVEN AND SHE IS PLACED ON AN EXTERNAL PACEMAKER . [address] DR[address] PIMENTEL CALLED AND REPORTED PT HAD A RIGHT SIDED PNEUMO. 2017 SOCRATES PLACED A RT SIDED CHEST TUBE. 2229 SHE'S BACK IN PEA AND SHE DIGRESSED TO ASYSTOLE. AND THE CODE WAS CALLED AT 2234. THE FAMILY WAS CALLED WHEN THE CODE WAS CALLED , DR. BROWN AND DR. HURST WERE NOTIFIED FAMILY MEMBERS AT THE BEDSIDE.
[2021-12-20] MEDS ORDERED: EPINEPHrine 1 MG/ML AMP ONE (21:43)
[2021-12-20] MEDS ORDERED: EPINEPHrine 1 mg/mL 1 MG in DEXTROSE 5% 250 ML IV PRN (21:45)
[2021-12-20] MEDS ORDERED: VANCOMYCIN PER PHARMACY MC PRN (22:05)
[2021-12-20 22:12] LABS: BASOPHILS % (AUTO) 0.4 % (0.0-2.0); EOSINOPHILS % (AUTO) 0.6 % (0.0-4.0); HEMATOCRIT 25.5 % (36-48); HEMOGLOBIN 8.3 g/dL (12.0-16.0); LYMPHOCYTES # (AUTO) 4.6 K/uL (2.5-16.5); LYMPHOCYTES % (AUTO) 56.5 % (20.5-51.1); MEAN CORPUSCULAR HEMOGLOBIN 28 pg (27-31); MEAN CORPUSCULAR HGB CONC 33 g/dL (33-37); MEAN CORPUSCULAR VOLUME 84.7 fL (80-94); MONOCYTES # (AUTO) 0.1 K/uL (0.8-1.0); MONOCYTES % (AUTO) 1.6 % (1.7-9.3); NEUTROPHILS # (AUTO) 3.4 K/uL (1.8-7.7); NEUTROPHILS % (AUTO) 40.9 % (42.2-75.2); PLATELET COUNT (AUTO) 102 K/uL (140-450); RED BLOOD CELL COUNT(AUTO) 3.01 MIL/uL (4.20-5.40); WHITE BLOOD COUNT (AUTO) 8.2 K/uL (4.8-10.8)
[2021-12-20 22:22] LABS: ALBUMIN 1.9 g/dL (3.4-5.0); ANION GAP 23.3 (8-16); ASPARTATE AMINOTRANSFERASE 309 U/L (15-37); CARBON DIOXIDE 21.2 mmol/L (21-32); CHLORIDE 92 mmol/L (98-107); CREATININE 3.6 mg/dL (0.6-1.3); POTASSIUM 4.5 mmol/L (3.5-5.1); SODIUM SERUM 132 mmol/L (136-145); TOTAL BILIRUBIN 0.3 mg/dL (0.0-1.0)
[2021-12-20 22:26] LABS: GLUCOSE 402 mg/dL (74-106); UREA NITROGEN, BLOOD 74 mg/dL (7-18)
[2021-12-20 22:31] LABS: MAGNESIUM 2.3 mg/dL (1.8-2.4)
[2021-12-20 22:33] LABS: PHOSPHORUS 9.8 mg/dL (2.5-4.9)
[2021-12-20] MEDS ORDERED: VANCOMYCIN 1GM/DEXT 5% PREMIX 200 ML IV SCH (23:30)
--- NOTE | 2021-12-20 23:30 | NUR ---
PT WAS PRONOUNCED PER DR. VARGAS AT 2235 [facility] WAS CLLED AT 2300, SPOKE WITH HOLLY. CASE NUMBER GIVEN [id number]. THE VIRTUAL CUSTOMER ASSISTANT WAS CALLED. SPOKE ZOE [email or web address]. NEITHER WANTED TO DETAIN THE BODY..THE BODY WAS PICKED UO\P BY [employer] [facility]\MORTUARY @0330, THE MORTUARY RELEASE WAS SIGNED BY HER DAUGHTER , MATY WORRELLKULWANT.
[2021-12-21] MEDS ORDERED: MAG SULF 2000 MG/WATER PREMIX 50 ML IV SCH (00:35)
--- NOTE | 2021-12-21 01:33 | NUR ---
PHONE CALL TO [facility], SPOKE WITH GUNNAR LAMBERT 2HOURS
--- NOTE | 2021-12-21 03:30 | NUR ---
BODY PICKED UP BY [facility] [employer].
[2021-12-21] MEDS ORDERED: NIFEdipine 60 MG TABER PO SCH (09:00)
== END 2021-12-21 03:30 | DRG 871 ==
LOC: MED 19:18 → MTU 23:58 → MIC 12-17 17:45
PROVIDERS: ADMIT Hospitalist; ATTEND Hospitalist
PROC: 5A09357 Assistance with Respiratory Ventilation, Less than 24 Consecutive Hours, Continuous Positive Airway Pressure (ICD-10-PCS; principal; 2021-12-17)
PROC: 05HA33Z Insertion of Infusion Device into Left Brachial Vein, Percutaneous Approach (ICD-10-PCS; 2021-12-18)
PROC: B54NZZA Ultrasonography of Left Upper Extremity Veins, Guidance (ICD-10-PCS; 2021-12-18)
PROC: 0BH17EZ Insertion of Endotracheal Airway into Trachea, Via Natural or Artificial Opening (ICD-10-PCS; 2021-12-20)
PROC: 0W9930Z Drainage of Right Pleural Cavity with Drainage Device, Percutaneous Approach (ICD-10-PCS; 2021-12-21)
DX: A41.9 Sepsis, unspecified organism (principal); I21.4 Non-ST elevation (NSTEMI) myocardial infarction; I50.33 Acute on chronic diastolic (congestive) heart failure; J18.9 Pneumonia, unspecified organism; N17.0 Acute kidney failure with tubular necrosis; J96.01 Acute respiratory failure with hypoxia; J93.0 Spontaneous tension pneumothorax; J69.0 Pneumonitis due to inhalation of food and vomit; I13.0 Hypertensive heart and chronic kidney disease with heart failure and stage 1 through stage 4 chronic kidney disease, or unspecified chronic kidney disease; N18.4 Chronic kidney disease, stage 4 (severe); I16.1 Hypertensive emergency; Z20.822 Contact with and (suspected) exposure to COVID-19; K21.9 Gastro-esophageal reflux disease without esophagitis; E78.00 Pure hypercholesterolemia, unspecified; E78.5 Hyperlipidemia, unspecified; D63.8 Anemia in other chronic diseases classified elsewhere; E83.51 Hypocalcemia; E83.42 Hypomagnesemia; I25.10 Atherosclerotic heart disease of native coronary artery without angina pectoris; M19.90 Unspecified osteoarthritis, unspecified site; Z90.49 Acquired absence of other specified parts of digestive tract; Z90.710 Acquired absence of both cervix and uterus; Z86.74 Personal history of sudden cardiac arrest; Z88.8 Allergy status to other drugs, medicaments and biological substances; I46.9 Cardiac arrest, cause unspecified
CPT/HCPCS: 36415; 36600; 71045; 76770; 80048; 80053; 81003; 82803; 82948; 83036; 83605; 83735; 83880; 84100; 84484; 85025; 85610; 85730; 87040; 87070; 87081; 87205; 93005; 94640; 96374; 96376; 97110; 97112; 97163-GP; 99291; J0171; J0360; J1644; J1940; J2060; J2543; J3370; J3490; J7060; Q0092